=== PATIENT | female | born 1955 | race Caucasian/White ===

== ENCOUNTER 2016-05-03 13:17 | Inpatient (IN) | payer BC, OTHER ==
[~2016-05-03] VITALS: Ht 162.6 cm; Wt 72.0 kg
[2016-05-03 13:18] VITALS: BP 141/91; PULSE 94; RESP 17; TEMP 98.1; O2SAT 98
--- NOTE | 2016-05-03 15:13 | PD ---
HPI Chief Complaint: Abdominal Pain Time Seen by Provider: 15:05 Travel History International Travel<30 days: No Contact w/Intl Traveler<30days: No Traveled to known affect area: No History of Present Illness HPI Patient is a 60-year-old female presenting to emergency department for acute liver rejection. Patient had a liver transplant in 1993, she has been out of her antirejection medications for approximately 6 weeks due to insurance issues. She was seen at the emergency room at [facility] on April 01 and was given a three-day course of oral steroids. Patient started becoming jaundiced shortly after she ran out of her rejection medications. She was on Prograf. She was sent to the emergency room on the advice of her primary care provider Dr. Ramana Ovalles. Her last Bilirubin level was 17.7. Patient reports itching, jaundice, anxiety, abdominal bloating, right upper quadrant abdominal pain that is tender. PFSH Past Medical History Cirrhosis: Yes ?: Not Past Surgical History Other Surgery: Yes (LIVER REPLACEMENT 17 YEARS AGO) Social History Alcohol Use: No Tobacco Use: No Substance Use: No Allergies-Medications (Allergen,Severity, Reaction): Coded Allergies: No Known Allergies (Verified , 05/03/16) Reported Meds & Prescriptions Reported Meds & Active Scripts Active Reported Hydroxyzine HCl 25 Mg Tab 25 Mg PO TID PRN Prograf (Tacrolimus) 1 Mg Cap 1 Mg PO TID Review of Systems Except as stated in HPI: all other systems reviewed are Neg General / Constitutional: No: Fever, Chills Eyes: Positive: Other (scleral icterus) HENT: No: Headaches Cardiovascular: No: Chest Pain or Discomfort Respiratory: No: Shortness of Breath Gastrointestinal: Positive: Abdominal Pain (right upper quadrant and bloating) , No: Nausea Genitourinary: No: Dysuria Skin: Positive Itching, Positive Change in Pigmentation Neurologic: No: Dizziness, Focal Abnormalities Physical Exam Narrative GENERAL: Developed, well-nourished, alert female. Resting comfortably in no acute distress. SKIN: Warm and dry. Jaundiced HEAD: Atraumatic. Normocephalic. EYES: Pupils equal and round. Positive scleral icterus. No injection or drainage. ENT: No nasal bleeding or discharge. Mucous membranes pink and moist. NECK: Trachea midline. No JVD. CARDIOVASCULAR: Regular rate and rhythm. No murmur appreciated. RESPIRATORY: No accessory muscle use. Clear to auscultation. Breath sounds equal bilaterally. GASTROINTESTINAL: Abdomen soft, moderately tender to palpation right upper quadrant, nondistended. Hepatic and splenic margins not palpable. Positive bowel sounds. Positive guarding MUSCULOSKELETAL: No obvious deformities. No clubbing. No cyanosis. No edema. NEUROLOGICAL: Awake and alert. No obvious cranial nerve deficits. Motor grossly within normal limits. Normal speech. PSYCHIATRIC: Appropriate mood and affect; insight and judgment normal. Data Data Last Documented VS Vital Signs Date Time Temp Pulse Resp B/P Pulse Ox O2 Delivery O2 Flow Rate FiO2 05/03/16 16:53 20 05/03/16 15:30 89 148/86 98 Room Air 05/03/16 13:18 98.1 Orders Complete Blood Count With Diff (05/03/16 14:53) Comprehensive Metabolic Panel (05/03/16 14:53) Lipase (05/03/16 14:53) Lactic Acid (05/03/16 14:53) Prothrombin Time / Inr (Pt) (05/03/16 14:53) Act Partial Throm Time (Ptt) (05/03/16 14:53) Urinalysis - C+S If Indicated (05/03/16 14:53) Us Abdomen Gallbladder (05/03/16 ) Ammonia (05/03/16 14:53) Electrocardiogram (05/03/16 ) Chest, Single Ap (05/03/16 ) Admit Order (Ed Use Only) (05/03/16 17:38) Labs Laboratory Tests Test 05/03/16 15:15 White Blood Count 6.6 TH/MM3 Red Blood Count 4.36 MIL/MM3 Hemoglobin 13.2 GM/DL Hematocrit 38.6 % Mean Corpuscular Volume 88.5 FL Mean Corpuscular Hemoglobin 30.2 PG Mean Corpuscular Hemoglobin 34.1 % Concent Red Cell Distribution Width 24.2 % Platelet Count 132 TH/MM3 Mean Platelet Volume 9.2 FL Neutrophils (%) (Auto) % Lymphocytes (%) (Auto) % Monocytes (%) (Auto) % Eosinophils (%) (Auto) % Basophils (%) (Auto) % Neutrophils # (Auto) TH/MM3 Lymphocytes # (Auto) TH/MM3 Monocytes # (Auto) TH/MM3 Eosinophils # (Auto) TH/MM3 Basophils # (Auto) TH/MM3 CBC Comment AUTO DIFF Differential Total Cells 100 Counted Neutrophils % (Manual) 62 % Band Neutrophils % 1 % Lymphocytes % 27 % Monocytes % 7 % Eosinophils % 2 % Basophils % 1 % Neutrophils # (Manual) 4.2 TH/MM3 Differential Comment FINAL DIFF MANUAL Platelet Estimate LOW Platelet Morphology Comment NORMAL Target Cells 1+ Prothrombin Time 10.7 SEC Prothromb Time International 1.0 RATIO Ratio Activated Partial 26.8 SEC Thromboplast Time Sodium Level 141 MEQ/L Potassium Level 4.3 MEQ/L Chloride Level 109 MEQ/L Carbon Dioxide Level 23.5 MEQ/L Anion Gap 9 MEQ/L Blood Urea Nitrogen 27 MG/DL Creatinine 1.62 MG/DL Estimat Glomerular Filtration 32 ML/MIN Rate Random Glucose 146 MG/DL Lactic Acid Level 0.8 mmol/L Calcium Level 9.4 MG/DL Total Bilirubin 15.7 MG/DL Aspartate Amino Transf 102 U/L (AST/SGOT) Alanine Aminotransferase 90 U/L (ALT/SGPT) Alkaline Phosphatase 456 U/L Ammonia LESS THAN 10 MCMOL/L Total Protein 6.9 GM/DL Albumin 2.8 GM/DL Lipase 88 U/L MDM Medical Decision Making Medical Screen Exam Complete: Yes Emergency Medical Condition: Yes Interpretation(s) Vital Signs Date Time Temp Pulse Resp B/P Pulse Ox O2 Delivery O2 Flow Rate FiO2 05/03/16 13:18 98.1 94 17 141/91 98 Differential Diagnosis Acute rejection versus electrolyte abnormality versus liver failure versus coagulopathy versus other Narrative Course Patient is a 60-year-old female presenting to emergency room for evaluation of jaundice and acute rejection of transplanted. Patient was sent by her primary doctor due to elevated bilirubin levels. Labs and imaging ordered and pending. Workup initiated triage, care of patient will be transferred to provider when a medical bed is available. Eryn Bean May 03, 2016 15:13
[2016-05-03 15:30] VITALS: BP 148/86; PULSE 89; RESP 17; O2SAT 98
[2016-05-03 15:35] LABS: HEMATOCRIT 38.6 % (35.0-46.0); MEAN CELL VOLUME 88.5 FL (80.0-100.0); MEAN CORPUSCULAR HEMOGLOBIN 30.2 PG (27.0-34.0); MEAN CORPUSCULAR HGB CONC 34.1 % (32.0-36.0); PLATELET COUNT 132 TH/MM3 (150-450); RED BLOOD COUNT 4.36 MIL/MM3 (4.00-5.30); RED CELL DISTRIBUTION WIDTH 24.2 % (11.6-17.2); WHITE BLOOD COUNT 6.6 TH/MM3 (4.0-11.0)
[2016-05-03 15:48] LABS: HEMO FLAGS AUTO DIFF
[2016-05-03 15:58] LABS: ANION GAP 9 MEQ/L (5-15); AST (GOT) 102 U/L (15-37); BICARBONATE 23.5 MEQ/L (21.0-32.0); BLOOD UREA NITROGEN 27 MG/DL (7-18); CHLORIDE 109 MEQ/L (98-107); GLOMERULAR FILTRATION RATE 32 ML/MIN (>89); POTASSIUM 4.3 MEQ/L (3.5-5.1); SODIUM (NA) 141 MEQ/L (136-145)
[2016-05-03 16:03] LABS: ALKALINE PHOSPHATASE 456 U/L (45-117); ALT (GPT) 90 U/L (10-53); TOTAL BILIRUBIN ADULT 15.7 MG/DL (0.2-1.0)
[2016-05-03 16:06] LABS: APTT (PATIENT) 26.8 SEC (24.3-30.1); PROTHROMBIN TIME - PATIENT 10.7 SEC (9.8-11.6)
--- NOTE | 2016-05-03 16:41 | RADRPT ---
EXAM DATE/TIME: 05/03/2016 15:54 This report includes an Addendum and supersedes previous reports for this exam. [facility] COMPARISON: No previous studies available for comparison. INDICATIONS : Right upper quadrant pain. MEDICAL HISTORY : Cirrhosis. SURGICAL HISTORY : Liver replacement 17yrs ago. ENCOUNTER: Initial ACUITY: 1 month PAIN SCORE: 2/10 LOCATION: Right upper quadrant MEASUREMENTS: LIVER: 12.5 cm length COMMON DUCT: 4 mm RIGHT KIDNEY: 9.6 x 5.3 x 4.5 cm FINDINGS: LIVER: Liver is small. The liver surface does appear nodular. No focal hepatic masses seen. COMMON DUCT: No intraluminal mass or stone visualized. GALLBLADDER: The gallbladder is absent. PANCREAS: The visualized portions are within normal limits. RIGHT KIDNEY: No evidence of hydronephrosis, stone, or mass. CONCLUSION: Nodular liver which could suggest some degree of cirrhosis in the correct clinical situation. Joe Guerrier MD on May 03, 2016 at 16:38 Board Certified Radiologist. This report was verified electronically. ADDENDUM: I been asked to review the study. There is normal flow in the portal vein and hepatic veins . The hepatic artery was not examined. Joe Guerrier MD on May 04, 2016 at 9:28 Board Certified Radiologist. This report was verified electronically.
[2016-05-03 16:43] LABS: BANDS 1 % (0-6); BASOPHILS 1 % (0-2); EOSINOPHILS 2 % (0-4); NEUTROPHIL # MANUAL DIFF 4.2 TH/MM3 (1.8-7.7); POLYS (SEG NEUTROPHILS) 62 % (16-70); WBC DIFF SAMPLE 100
[2016-05-03 16:45] LABS: PLATELET ESTIMATE SMEAR LOW (NORMAL); PLATELET MORPHOLOGY NORMAL (NORMAL); SCAN/DIFF FINAL DIFF MANUAL; TARGET CELLS 1+ (NORMAL)
--- NOTE | 2016-05-03 17:28 | RADRPT ---
EXAM DATE/TIME: 05/03/2016 16:50 [facility] COMPARISON: No previous studies available for comparison. INDICATIONS : Cough. Short of breath. Jaundice due to liver rejection. MEDICAL HISTORY : Cirrhosis. SURGICAL HISTORY : Liver transplant 17 years ago. ENCOUNTER: Initial ACUITY: 4 - 6 days PAIN SCORE: 0/10 LOCATION: Bilateral chest FINDINGS: A single view of the chest demonstrates the lungs to be symmetrically aerated without evidence of mas s, infiltrate or effusion. The cardiomediastinal contours are unremarkable. Osseous structures are intact. CONCLUSION: No acute disease. John Drew MD on May 03, 2016 at 17:25 Board Certified Radiologist. This report was verified electronically.
[2016-05-03] MEDS ORDERED: HYDR-3133 PO (17:38)
[2016-05-03] MEDS ORDERED: TACR1 PO (17:38)
--- NOTE | 2016-05-03 17:38 | PD ---
Physical Exam Time Seen by Provider: 17:37 Narrative Please refer to produce provider's documentation for details surrounding the patient's current visit. Data Data Last Documented VS Vital Signs Date Time Temp Pulse Resp B/P Pulse Ox O2 Delivery O2 Flow Rate FiO2 05/03/16 16:53 20 05/03/16 13:18 98.1 94 141/91 98 Orders Complete Blood Count With Diff (05/03/16 14:53) Comprehensive Metabolic Panel (05/03/16 14:53) Lipase (05/03/16 14:53) Lactic Acid (05/03/16 14:53) Prothrombin Time / Inr (Pt) (05/03/16 14:53) Act Partial Throm Time (Ptt) (05/03/16 14:53) Urinalysis - C+S If Indicated (05/03/16 14:53) Us Abdomen Gallbladder (05/03/16 ) Ammonia (05/03/16 14:53) Electrocardiogram (05/03/16 ) Chest, Single Ap (05/03/16 ) Admit Order (Ed Use Only) (05/03/16 17:38) Labs Laboratory Tests Test 05/03/16 15:15 White Blood Count 6.6 TH/MM3 Red Blood Count 4.36 MIL/MM3 Hemoglobin 13.2 GM/DL Hematocrit 38.6 % Mean Corpuscular Volume 88.5 FL Mean Corpuscular Hemoglobin 30.2 PG Mean Corpuscular Hemoglobin 34.1 % Concent Red Cell Distribution Width 24.2 % Platelet Count 132 TH/MM3 Mean Platelet Volume 9.2 FL Neutrophils (%) (Auto) % Lymphocytes (%) (Auto) % Monocytes (%) (Auto) % Eosinophils (%) (Auto) % Basophils (%) (Auto) % Neutrophils # (Auto) TH/MM3 Lymphocytes # (Auto) TH/MM3 Monocytes # (Auto) TH/MM3 Eosinophils # (Auto) TH/MM3 Basophils # (Auto) TH/MM3 CBC Comment AUTO DIFF Differential Total Cells 100 Counted Neutrophils % (Manual) 62 % Band Neutrophils % 1 % Lymphocytes % 27 % Monocytes % 7 % Eosinophils % 2 % Basophils % 1 % Neutrophils # (Manual) 4.2 TH/MM3 Differential Comment FINAL DIFF MANUAL Platelet Estimate LOW Platelet Morphology Comment NORMAL Target Cells 1+ Prothrombin Time 10.7 SEC Prothromb Time International 1.0 RATIO Ratio Activated Partial 26.8 SEC Thromboplast Time Sodium Level 141 MEQ/L Potassium Level 4.3 MEQ/L Chloride Level 109 MEQ/L Carbon Dioxide Level 23.5 MEQ/L Anion Gap 9 MEQ/L Blood Urea Nitrogen 27 MG/DL Creatinine 1.62 MG/DL Estimat Glomerular Filtration 32 ML/MIN Rate Random Glucose 146 MG/DL Lactic Acid Level 0.8 mmol/L Calcium Level 9.4 MG/DL Total Bilirubin 15.7 MG/DL Aspartate Amino Transf 102 U/L (AST/SGOT) Alanine Aminotransferase 90 U/L (ALT/SGPT) Alkaline Phosphatase 456 U/L Ammonia LESS THAN 10 MCMOL/L Total Protein 6.9 GM/DL Albumin 2.8 GM/DL Lipase 88 U/L [facility] Medical Record Reviewed: Yes Supervised Visit with CARLOS MANUEL: No Differential Diagnosis Liver failure versus liver transplant rejection versus hepatitis versus viral syndrome Narrative Course 60-year-old female presents to emergency department for evaluation of possible liver transplant rejection. Patient is icteric with right upper quadrant abdominal pain. Laboratory Tests Test 05/03/16 15:15 White Blood Count 6.6 TH/MM3 Red Blood Count 4.36 MIL/MM3 Hemoglobin 13.2 GM/DL Hematocrit 38.6 % Mean Corpuscular Volume 88.5 FL Mean Corpuscular Hemoglobin 30.2 PG Mean Corpuscular Hemoglobin 34.1 % Concent Red Cell Distribution Width 24.2 % Platelet Count 132 TH/MM3 Mean Platelet Volume 9.2 FL Neutrophils (%) (Auto) % Lymphocytes (%) (Auto) % Monocytes (%) (Auto) % Eosinophils (%) (Auto) % Basophils (%) (Auto) % Neutrophils # (Auto) TH/MM3 Lymphocytes # (Auto) TH/MM3 Monocytes # (Auto) TH/MM3 Eosinophils # (Auto) TH/MM3 Basophils # (Auto) TH/MM3 CBC Comment AUTO DIFF Differential Total Cells 100 Counted Neutrophils % (Manual) 62 % Band Neutrophils % 1 % Lymphocytes % 27 % Monocytes % 7 % Eosinophils % 2 % Basophils % 1 % Neutrophils # (Manual) 4.2 TH/MM3 Differential Comment FINAL DIFF MANUAL Platelet Estimate LOW Platelet Morphology Comment NORMAL Target Cells 1+ Prothrombin Time 10.7 SEC Prothromb Time International 1.0 RATIO Ratio Activated Partial 26.8 SEC Thromboplast Time Sodium Level 141 MEQ/L Potassium Level 4.3 MEQ/L Chloride Level 109 MEQ/L Carbon Dioxide Level 23.5 MEQ/L Anion Gap 9 MEQ/L Blood Urea Nitrogen 27 MG/DL Creatinine 1.62 MG/DL Estimat Glomerular Filtration 32 ML/MIN Rate Random Glucose 146 MG/DL Lactic Acid Level 0.8 mmol/L Calcium Level 9.4 MG/DL Total Bilirubin 15.7 MG/DL Aspartate Amino Transf 102 U/L (AST/SGOT) Alanine Aminotransferase 90 U/L (ALT/SGPT) Alkaline Phosphatase 456 U/L Ammonia LESS THAN 10 MCMOL/L Total Protein 6.9 GM/DL Albumin 2.8 GM/DL Lipase 88 U/L CBC is without acute concern. Liver enzymes are elevated. Bilirubin is 15.7. Ultrasound of the right upper quadrant shows nodular liver which could be indicative of cirrhosis in the right clinical setting. I discussed the patient my attending physician Dr. Blackwell who agrees with contacting hospitalist for admission for further evaluations. I spoke with Dr. Garcia. Patient will be admitted observation to the [facility] hospitalist service. Diagnosis Primary Impression: Liver transplant rejection Admitting Information Admitting Physician Requests: Observation Condition: Stable Viv Simons May 03, 2016 17:38
[2016-05-03] MEDS ORDERED: hydrOXYzine HCL 50 MG TAB PO ONE (17:45)
[2016-05-03 18:00] VITALS: BP 146/76; PULSE 78; RESP 17; O2SAT 99
[2016-05-03 18:27] LABS: BACTERIA, URINE OCC /hpf; BLOOD, URINE NEG (NEG); COMMENT (UR) CULT NOT INDICATED; CULTURE IF INDICATED CULT NOT INDICATED; GLUCOSE,URINE NEG (NEG); HYALINE CAST, URINE 1 /lpf (RARE); KETONE, URINE NEG (NEG); MUCUS URINE FEW /lpf (OCC); NITRITE,URINE NEG (NEG); SQUAMOUS EPITHELIAL CELL URINE 1 /hpf (0-5)
[2016-05-03 18:28] LABS: URINE COLOR AMBER (YELLW/STRAW)
[2016-05-03] MEDS ORDERED: SODIUM CHLOR 0.9% 1000 ML INJ 1,000 ML IV SCH (19:02)
[2016-05-03 19:11] VITALS: BP 172/95; PULSE 83; RESP 16; O2SAT 100
[2016-05-03] MEDS ORDERED: hydrOXYzine HCL 25 MG TAB PO PRN (19:15)
[2016-05-03] MEDS ORDERED: SODIUM CHLORIDE 0.9% FLUSH 5 ML FLUSH FLUSH PRN ×2 (19:15→20:30)
[2016-05-03] MEDS ORDERED: ACETAMINOPHEN 325 MG TAB PO PRN (19:15)
[2016-05-03] MEDS ORDERED: SENNOSIDES 8.6 MG TAB PO PRN (19:15)
[2016-05-03] MEDS ORDERED: PROCHLORPERAZINE 25 MG SUPP PR PRN (19:15)
[2016-05-03] MEDS ORDERED: BISACODYL 10 MG SUPP PR PRN ×2 (19:15→20:30)
[2016-05-03] MEDS ORDERED: ONDANSETRON HCL 4 MG/2 ML VIAL IVP PRN (19:15)
[2016-05-03] MEDS ORDERED: NALOXONE HCL 0.4 MG/ML AMP IV PRN (20:30)
[2016-05-03] MEDS ORDERED: MAGNESIUM HYDROXIDE SUSP 30 ML CUP PO PRN (20:30)
[2016-05-03] MEDS ORDERED: SODIUM CHLORIDE 0.9% FLUSH 5 ML FLUSH FLUSH SCH (21:00)
[2016-05-03] MEDS: methylPREDNISolone SOD SUCC 40 MG/1 ML VIAL IV PUSH SCH (22:12)
[2016-05-03] MEDS: SODIUM CHLORIDE 0.9% FLUSH 5 ML FLUSH FLUSH SCH (22:13)
[2016-05-03] MEDS: 1/2 NS + KCL 20 MEQ INJ 1,000 ML IV SCH (23:20)
[2016-05-04] VITALS (7 sets, daily range): BP systolic 133–160; BP diastolic 64–85; PULSE 81–102; RESP 17–20; TEMP 96.7–98.7; O2SAT 93–99
[2016-05-04] MEDS: hydrOXYzine HCL 25 MG TAB PO PRN ×2 (00:07→18:42)
[2016-05-04] MEDS: methylPREDNISolone SOD SUCC 40 MG/1 ML VIAL IV PUSH SCH (06:36)
--- NOTE | 2016-05-04 08:34 | HHI.HP ---
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 She received a full-sized graft with a [id number] biliary anastomosis. CMV status is unknown. Patient presented to [place] ER with complaint of diarrhea, jaundice, dark urine , pruritus, weakness, but no abdominal pain except with cough. No edema. No fever. Patient denies any weight gain or personality changes. Patient was sent to the ER by her primary care physician due to abnormal labs. Patient has previously followed at the Liver Clinic at the [facility]. Per review of records from [place] patient has previously had issues with compliance including labs, medications, and financial constraints. Patient was admitted to inpatient status at the [facility] on April 01, 2016. At that time patient had been off of her anti-rejection medication for 6 weeks, prograf. Patient resumed Prograf 1 week prior to above March hospitalization. Upon presentation to the [facility], patient complained of a 3 week history of fatigue, nausea, vomiting, abdominal distention, pruritus, dark urine. At that time admission labs showed elevated LFTs and hyperbilirubinemia with a total bilirubin of 9.2 (04/01/16), bili direct 7.2 (04/01/16), alk phos 537 (04/01/16), ALT 227 (04/01/16), AST 184 (04/01/16), Creatinine 1.5 (04/01/16). During hospitalization at [facility] pt was attended by Dr. Ford Torres. Pt underwent liver biopsy during above hospitalization which per records showed mild acute cellular rejection. Pt received atarax, IV Solu-Medrol 1 g x 3 doses, and was discharge on prograft. Pt seen in [place] ER 04/09/16 with c/o N/V and pruritus. Bilirubin total 13.2, bilirubin direct 9.8, alkaline phosphatase 512, ALT 259, AST 134, creatinine 1.0. ER records indicate that patient was NOT admitted. There was communication between the ER physician and the liver transplant team. Patient was continued on Atarax. Patient was instructed to follow-up with the [facility] liver transplantation team. Outpatient Labs obtained 04/28/16 Bilirubin total 17.7, alkaline phosphatase 439, AST 102, ALT 95, creatinine 1.47 Item Value Date Time Total Bilirubin 15.7 MG/DL H 05/03/16 1515 Aspartate Amino Transf (AST/SGOT) 102 U/L H 05/03/16 1515 Alanine Aminotransferase (ALT/SGPT) 90 U/L H 05/03/16 1515 Alkaline Phosphatase 456 U/L H 05/03/16 1515 Ammonia LESS THAN 10 MCMOL/L L 05/03/16 1515 Creatinine 1.62 MG/DL H 05/03/16 151 Patient denies use supplements or recent use of Tylenol. Pt denies starting any new medications. Review of Systems Constitutional: COMPLAINS OF: Fatigue, DENIES: Diaphoretic episodes, Fever, Weight gain, Weight loss, Chills, Dizziness, Change in appetite, Night Sweats Endocrine: DENIES: Heat/cold intolerance, Polydipsia, Polyuria, Polyphagia Eyes: DENIES: Blurred vision, Diplopia, Eye inflammation, Eye pain, Vision loss , Photosensitivity, Double Vision Ears, nose, mouth, throat: DENIES: Tinnitus, Hearing loss, Vertigo, Nasal discharge, Oral lesions, Throat pain, Hoarseness, Ear Pain, Running Nose, Epistaxis, Sinus Pain, Toothache, Odynophagia Respiratory: DENIES: Apneas, Cough, Snoring, Wheezing, Hemoptysis, Sputum production, Shortness of breath Cardiovascular: DENIES: Chest pain, Palpitations, Syncope, Dyspnea on Exertion , PND, Lower Extremity Edema, Orthopnea, Claudication Gastrointestinal: COMPLAINS OF: Abdominal pain, Nausea, Anorexia, See HPI, DENIES: Black stools, Bloody stools, BRB per rectum, Constipation, Diarrhea, GERD, Reflux, Vomiting, Difficulty Swallowing Genitourinary: DENIES: Urinary frequency, Urinary incontinence, Urgency, Hematuria, Dysuria, Nocturia Musculoskeletal: DENIES: Joint pain, Muscle aches, Stiffness, Joint Swelling, Back pain, Neck pain Integumentary: COMPLAINS OF: Pruritus, DENIES: Abnormal pigmentation, Rash, Nail changes Hematologic/lymphatic: DENIES: Bruising, Lymphadenopathy Immunologic/allergic: DENIES: Eczema, Urticaria Neurologic: DENIES: Abnormal gait, Headache, Localized weakness, Paresthesias, Seizures, Speech Problems, Tremor, Poor Balance Psychiatric: DENIES: Anxiety, Confusion, Mood changes, Depression, Hallucinations, Agitation, Suicidal Ideation, Homicidal Ideation, Delusions, History of Bipolar, History of Schizophrenia Past Family Social History Past Medical History 1) cryptogenic cirrhosis s/p OLT 2) HTN 3) migraine headaches 4) LBP 5) prior h/o rejection x 4 (per records) Past Surgical History Orthotopic liver transplant 06/07/1993 at [facility] in [facility] Reported Medications Reported Meds & Active Scripts Active Reported Prograf (Tacrolimus) 1 Mg Cap 1 Mg PO TID Allergies: Coded Allergies: No Known Allergies (Verified , 05/03/16) Family History Mother: secondary to stomach cancer Father: DC secondary to stroke Sister: Cryptogenic liver disease, hyperlipidemia Social History - Lives with 2 daughters - No tobacco use - No alcohol use, but it is documented that patient drank socially following transplant - (Per records) history of noncompliance with labs and medications Physical Exam Vital Signs Vital Signs Date Time Temp Pulse Resp B/P Pulse Ox O2 Delivery O2 Flow Rate FiO2 05/04/16 04:00 96.7 83 18 133/77 95 05/04/16 00:00 98.7 92 18 140/64 93 05/03/16 19:53 21 05/03/16 19:11 83 16 172/95 100 Room Air 05/03/16 18:00 78 17 146/76 99 Room Air 05/03/16 16:53 20 05/03/16 15:30 89 17 148/86 98 Room Air 05/03/16 13:18 98.1 94 17 141/91 98 Physical Exam GENERAL: This is a well-nourished, well-developed patient, in no apparent distress. SKIN: No rashes, ecchymoses or lesions. Cool and dry. HEAD: Atraumatic. Normocephalic. No temporal or scalp tenderness. EYES: icteric sclera Pupils equal round and reactive. Extraocular motions intact. No injection or drainage. ENT: Nose without bleeding, purulent drainage or septal hematoma. Throat without erythema, tonsillar hypertrophy or exudate. Uvula midline. Airway patent. NECK: Trachea midline. No JVD or lymphadenopathy. Supple, nontender, no meningeal signs. CARDIOVASCULAR: Regular rate and rhythm without murmurs, gallops, or rubs. RESPIRATORY: Clear to auscultation. Breath sounds equal bilaterally. No wheezes , rales, or rhonchi. GASTROINTESTINAL: Abdomen soft, non-tender, nondistended. No hepato-splenomegaly , or palpable masses. No guarding. MUSCULOSKELETAL: Extremities without clubbing, cyanosis, or edema. No joint tenderness, effusion, or edema noted. No calf tenderness. Negative Homans sign bilaterally. NEUROLOGICAL: Awake and alert. Cranial nerves II through XII intact. Motor and sensory grossly within normal limits. Five out of 5 muscle strength in all muscle groups. Normal speech. Skin: jaundiced Laboratory Laboratory Tests Test 05/03/16 05/03/16 05/03/16 15:15 18:00 21:40 White Blood Count 6.6 Red Blood Count 4.36 Hemoglobin 13.2 Hematocrit 38.6 Mean Corpuscular Volume 88.5 Mean Corpuscular Hemoglobin 30.2 Mean Corpuscular Hemoglobin 34.1 Concent Red Cell Distribution Width 24.2 Platelet Count 132 Mean Platelet Volume 9.2 Neutrophils (%) (Auto) Lymphocytes (%) (Auto) Monocytes (%) (Auto) Eosinophils (%) (Auto) Basophils (%) (Auto) Neutrophils # (Auto) Lymphocytes # (Auto) Monocytes # (Auto) Eosinophils # (Auto) Basophils # (Auto) CBC Comment AUTO DIFF Differential Total Cells 100 Counted Neutrophils % (Manual) 62 Band Neutrophils % 1 Lymphocytes % 27 Monocytes % 7 Eosinophils % 2 Basophils % 1 Neutrophils # (Manual) 4.2 Differential Comment FINAL DIFF MANUAL Platelet Estimate LOW Platelet Morphology Comment NORMAL Target Cells 1+ Prothrombin Time 10.7 Prothromb Time International 1.0 Ratio Activated Partial 26.8 Thromboplast Time Sodium Level 141 Potassium Level 4.3 Chloride Level 109 Carbon Dioxide Level 23.5 Anion Gap 9 Blood Urea Nitrogen 27 Creatinine 1.62 Estimat Glomerular Filtration 32 Rate Random Glucose 146 Lactic Acid Level 0.8 Calcium Level 9.4 Total Bilirubin 15.7 Aspartate Amino Transf 102 (AST/SGOT) Alanine Aminotransferase 90 (ALT/SGPT) Alkaline Phosphatase 456 Ammonia LESS THAN 10 LESS THAN 10 Total Protein 6.9 Albumin 2.8 Lipase 88 Urine Color LENORE Urine Turbidity HAZY Urine pH 5.0 Urine Specific [place] 1.015 Urine Protein TRACE Urine Glucose (UA) NEG Urine Ketones NEG Urine Occult Blood NEG Urine Nitrite NEG Urine Bilirubin LARGE Urine Urobilinogen LESS THAN 2.0 Urine Leukocyte Esterase MOD Urine RBC LESS THAN 1 Urine WBC 4 Urine Squamous Epithelial 1 Cells Urine Bacteria OCC Urine Hyaline Casts 1 Urine Mucus FEW Microscopic Urinalysis Comment CULT NOT INDICATED Item Value Date Time Total Bilirubin 15.7 MG/DL H 05/03/16 1515 Aspartate Amino Transf (AST/SGOT) 102 U/L H 05/03/16 1515 Alanine Aminotransferase (ALT/SGPT) 90 U/L H 05/03/16 1515 Alkaline Phosphatase 456 U/L H 05/03/16 1515 Ammonia LESS THAN 10 MCMOL/L L 05/03/16 151 Creatinine 1.62 MG/DL H 05/03/16 151 Result Diagram: 05/03/16 15105/03/161514 Imaging Gallbladder ultrasound (91763) - Nodular liver consistent with cirrhosis - No evidence of portal vein thrombosis Septic Shock Reassessment Heart: Regular rate and rhythm Lungs: Clear Skin: Warm Peripheral Pulses: Bounding Right Radial Bounding Left Radial Bounding Right Popliteal Bounding Left Popliteal Bounding Right Dorsalis Pedis Bounding Left Dorsalis Pedis Bounding Right Posterior Tibial Bounding Left Posterior Tibial Capillary Refill: Brisk Assessment and Plan Problem List: (1) Liver transplant rejection Status: Acute Plan: - Comgmt with GI, Dr. Byrne - Patient was off Prograf for 6 weeks, due to financial constraints - Patient recently hospitalized at [facility] in March 2016 - liver US (05/04/16) - NO evidence of portal vein thrombosis - On 3817: Total bilirubin 17.7, alkaline phosphatase 439, AST 102, ALT 95 - Patient started on IV Solu-Medrol at 40mg TID, and dose increased to 600mg IV TID - Prograf continued - Atarax prn - Prograf level 11.7 (05/03/16) - No coagulopathy - ammonia level is NOT elevated - Tylenol level less than 2 - Case d/w Dr. Byrne (05/04/16) - Dr. Byrne will discuss case with Liver specialist at [facility] for further recommendations - for now continue IVFs, high dose IV steroids, and repeat BMP, LFTs in AM. Atrax prn. (2) Elevated blood pressure reading Status: Acute Plan: - Patient was discharged in [facility] on Norvasc and atenolol - Not clear if patient was taking this in the outpatient setting - Observe blood pressure readings - Catapres prn, vasotec prn (3) Hemorrhoids, external Status: Acute Plan: [facility] Phys[facility] Certification 2 Midnight Certification Type: Admission for Inpatient Services Order for Inpatient Services The services are ordered in accordance with Medicare regulations or non- Medicare payer requirements, as applicable. In the case of services not specified as inpatient-only, they are appropriately provided as inpatient services in accordance with the 2-midnight benchmark. Estimated LOS (days): 3 3 days is the estimated time the patient will need to remain in the hospital, assuming treatment plan goals are met and no additional complications. Post-Hospital Plan: Not yet determined Ky Johns DO May 04, 2016 08:34
[2016-05-04] MEDS: 1/2 NS + KCL 20 MEQ INJ 1,000 ML IV SCH ×2 (08:40→13:18)
[2016-05-04] MEDS ORDERED: TACROLIMUS 1 MG CAP PO SCH ×2 (09:00)
[2016-05-04 09:22] LABS: HEMATOCRIT 35.6 % (35.0-46.0); MEAN CELL VOLUME 88.3 FL (80.0-100.0); MEAN CORPUSCULAR HEMOGLOBIN 30.3 PG (27.0-34.0); MEAN CORPUSCULAR HGB CONC 34.3 % (32.0-36.0); PLATELET COUNT 114 TH/MM3 (150-450); RED BLOOD COUNT 4.04 MIL/MM3 (4.00-5.30); RED CELL DISTRIBUTION WIDTH 22.9 % (11.6-17.2); WHITE BLOOD COUNT 4.7 TH/MM3 (4.0-11.0)
[2016-05-04 09:27] LABS: HEMO FLAGS AUTO DIFF
[2016-05-04] MEDS: TACROLIMUS 1 MG CAP PO SCH ×3 (09:42→18:42)
[2016-05-04] MEDS: SODIUM CHLORIDE 0.9% FLUSH 5 ML FLUSH FLUSH SCH ×2 (09:42→21:00)
[2016-05-04] MEDS ORDERED: ENALAPRILAT 1.25 MG/ML VIAL IV PRN (09:45)
[2016-05-04] MEDS ORDERED: cloNIDine HCL 0.2 MG TAB PO PRN (09:45)
[2016-05-04 09:55] LABS: ALKALINE PHOSPHATASE 441 U/L (45-117); ALT (GPT) 74 U/L (10-53); ANION GAP 11 MEQ/L (5-15); AST (GOT) 77 U/L (15-37); BICARBONATE 18.5 MEQ/L (21.0-32.0); CHLORIDE 111 MEQ/L (98-107); GLOMERULAR FILTRATION RATE 35 ML/MIN (>89); INDIRECT BILIRUBIN 2.7 MG/DL (0.0-0.8); MAGNESIUM 1.6 MG/DL (1.5-2.5); POTASSIUM 4.4 MEQ/L (3.5-5.1); SODIUM (NA) 140 MEQ/L (136-145); TOTAL BILIRUBIN ADULT 14.2 MG/DL (0.2-1.0)
[2016-05-04 09:56] LABS: ACETAMINOPHEN LESS THAN 2.0 MCG/ML (10.0-30.0); BLOOD UREA NITROGEN 30 MG/DL (7-18)
[2016-05-04 10:17] LABS: BANDS 3 % (0-6); NEUTROPHIL # MANUAL DIFF 4.6 TH/MM3 (1.8-7.7); POLYS (SEG NEUTROPHILS) 94 % (16-70); WBC DIFF SAMPLE 100
[2016-05-04 10:19] LABS: PLATELET ESTIMATE SMEAR LOW (NORMAL); PLATELET MORPHOLOGY NORMAL (NORMAL); SCAN/DIFF FINAL DIFF MANUAL; TARGET CELLS 1+ (NORMAL)
--- NOTE | 2016-05-04 13:23 | PD.CONS ---
HPI History of Present Illness This is a 60 year old female with a history of a orthotopic liver transplant at [facility] in [facility] in 1993 for end -stage liver disease due to cryptogenic cirrhosis. 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 She presented to the emergency department with complaints of diarrhea, jaundice, dark urine, pruritus, weakness. Denies abdominal pain. She previously followed at [facility] was hospitalized there in March. Prior to March hospitalization, patient was last seen at the [facility] in 2007. Per review of records from [facility] patient has previously had issues with compliance including labs, medications, and financial constraints. Patient was admitted to inpatient status at the [facility] on April 01, 2016. At that time patient had been off of her anti-rejection medication for 6 weeks, prograf. Patient resumed Prograf 1 week prior to above March hospitalization. Upon presentation to the [facility], patient complained of a 3 week history of fatigue, nausea, vomiting, abdominal distention, pruritus, dark urine. At that time admission labs showed elevated LFTs and hyperbilirubinemia with a total bilirubin of 9.2 (04/01/16), bili direct 7.2 (), alk phos 537 (04/01/16), ALT 227 (04/01/16), AST 184 (04/01/16), Creatinine 1.5 ( 04/01/16). During hospitalization at [facility] pt was attended by Dr. Ford Torres. Pt underwent liver biopsy during above hospitalization which per records showed mild acute cellular rejection. Pt received atarax, IV Solu-Medrol 1 g x 3 doses, and was discharge on prograft. Pt seen in [facility] ER 04/09/16 with c/o N/V and pruritus. Bilirubin total 13.2, bilirubin direct 9.8, alkaline phosphatase 512, ALT 259, AST 134, creatinine 1.0. ER records indicate that patient was not admitted. There was communication between the ER physician and the liver transplant team. Patient was continued on Atarax. Patient was instructed to follow-up with the [facility] liver transplantation team. Outpatient Labs obtained 04/28/16 Bilirubin total 17.7, alkaline phosphatase 439, AST 102, ALT 95, creatinine 1.47 (Dai Noonan) PFSH Past Medical History Cryptogenic cirrhosis S/P OLT HTN Migraine headaches Liver Bx Prior Hx of rejections Past Surgical History Orthotopic liver transplant (Dai Noonan) Coded Allergies: No Known Allergies (Verified , 05/03/16) Medications Reported Meds & Active Scripts Active Reported Prograf (Tacrolimus) 1 Mg Cap 1 Mg PO TID Family History Mother -stomach cancer Father stroke Sister Cryptogenic liver disease Social History Lives with 2 daughter no tobacco use No ETOH use (Dai Noonan) GI Exam Vitals I&O Vital Signs Date Time Temp Pulse Resp B/P Pulse Ox O2 Delivery O2 Flow Rate FiO2 05/04/16 12:33 97.6 88 18 149/84 97 05/04/16 08:31 98.2 81 17 142/85 98 05/04/16 04:00 96.7 83 18 133/77 95 05/04/16 00:00 98.7 92 18 140/64 93 05/03/16 19:53 21 05/03/16 19:11 83 16 172/95 100 Room Air 05/03/16 18:00 78 17 146/76 99 Room Air 05/03/16 16:53 20 05/03/16 15:30 89 17 148/86 98 Room Air 05/03/16 13:18 98.1 94 17 141/91 98 Laboratory Test 05/03/16 05/03/16 05/03/16 05/03/16 15:15 18:00 20:40 21:40 White Blood Count 6.6 TH/MM3 Red Blood Count 4.36 MIL/MM3 Hemoglobin 13.2 GM/DL Hematocrit 38.6 % Mean Corpuscular Volume 88.5 FL Mean Corpuscular Hemoglobin 30.2 PG Mean Corpuscular Hemoglobin 34.1 % Concent Red Cell Distribution Width 24.2 % Platelet Count 132 TH/MM3 Mean Platelet Volume 9.2 FL Neutrophils (%) (Auto) % Lymphocytes (%) (Auto) % Monocytes (%) (Auto) % Eosinophils (%) (Auto) % Basophils (%) (Auto) % Neutrophils # (Auto) TH/MM3 Lymphocytes # (Auto) TH/MM3 Monocytes # (Auto) TH/MM3 Eosinophils # (Auto) TH/MM3 Basophils # (Auto) TH/MM3 CBC Comment AUTO DIFF Differential Total Cells 100 Counted Neutrophils % (Manual) 62 % Band Neutrophils % 1 % Lymphocytes % 27 % Monocytes % 7 % Eosinophils % 2 % Basophils % 1 % Neutrophils # (Manual) 4.2 TH/MM3 Differential Comment FINAL DIFF MANUAL Platelet Estimate LOW Platelet Morphology Comment NORMAL Target Cells 1+ Prothrombin Time 10.7 SEC Prothromb Time International 1.0 RATIO Ratio Activated Partial 26.8 SEC Thromboplast Time Sodium Level 141 MEQ/L Potassium Level 4.3 MEQ/L Chloride Level 109 MEQ/L Carbon Dioxide Level 23.5 MEQ/L Anion Gap 9 MEQ/L Blood Urea Nitrogen 27 MG/DL Creatinine 1.62 MG/DL Estimat Glomerular Filtration 32 ML/MIN Rate Random Glucose 146 MG/DL Lactic Acid Level 0.8 mmol/L Calcium Level 9.4 MG/DL Total Bilirubin 15.7 MG/DL Aspartate Amino Transf 102 U/L (AST/SGOT) Alanine Aminotransferase 90 U/L (ALT/SGPT) Alkaline Phosphatase 456 U/L Ammonia LESS THAN 10 LESS THAN 10 MCMOL/L MCMOL/L Total Protein 6.9 GM/DL Albumin 2.8 GM/DL Lipase 88 U/L Urine Color LENORE Urine Turbidity HAZY Urine pH 5.0 Urine Specific [place] 1.015 Urine Protein TRACE mg/dL Urine Glucose (UA) NEG mg/dL Urine Ketones NEG mg/dL Urine Occult Blood NEG Urine Nitrite NEG Urine Bilirubin LARGE Urine Urobilinogen LESS THAN 2.0 MG/DL Urine Leukocyte Esterase MOD Urine RBC LESS THAN 1 /hpf Urine WBC 4 /hpf Urine Squamous Epithelial 1 /hpf Cells Urine Bacteria OCC /hpf Urine Hyaline Casts 1 /lpf Urine Mucus FEW /lpf Microscopic Urinalysis Comment CULT NOT INDICATED Tacrolimus (Prograf) Level 11.7 NG/ML Test 05/04/16 08:41 White Blood Count 4.7 TH/MM3 Red Blood Count 4.04 MIL/MM3 Hemoglobin 12.2 GM/DL Hematocrit 35.6 % Mean Corpuscular Volume 88.3 FL Mean Corpuscular Hemoglobin 30.3 PG Mean Corpuscular Hemoglobin 34.3 % Concent Red Cell Distribution Width 22.9 % Platelet Count 114 TH/MM3 Mean Platelet Volume 9.2 FL Neutrophils (%) (Auto) % Lymphocytes (%) (Auto) % Monocytes (%) (Auto) % Eosinophils (%) (Auto) % Basophils (%) (Auto) % Neutrophils # (Auto) TH/MM3 Lymphocytes # (Auto) TH/MM3 Monocytes # (Auto) TH/MM3 Eosinophils # (Auto) TH/MM3 Basophils # (Auto) TH/MM3 CBC Comment AUTO DIFF Differential Total Cells 100 Counted Neutrophils % (Manual) 94 % Band Neutrophils % 3 % Lymphocytes % 3 % Neutrophils # (Manual) 4.6 TH/MM3 Differential Comment FINAL DIFF MANUAL Platelet Estimate LOW Platelet Morphology Comment NORMAL Target Cells 1+ Sodium Level 140 MEQ/L Potassium Level 4.4 MEQ/L Chloride Level 111 MEQ/L Carbon Dioxide Level 18.5 MEQ/L Anion Gap 11 MEQ/L Blood Urea Nitrogen 30 MG/DL Creatinine 1.52 MG/DL Estimat Glomerular Filtration 35 ML/MIN Rate Random Glucose 258 MG/DL Calcium Level 8.7 MG/DL Magnesium Level 1.6 MG/DL Total Bilirubin 14.2 MG/DL Direct Bilirubin 11.5 MG/DL Indirect Bilirubin 2.7 MG/DL Aspartate Amino Transf 77 U/L (AST/SGOT) Alanine Aminotransferase 74 U/L (ALT/SGPT) Alkaline Phosphatase 441 U/L Total Protein 6.0 GM/DL Albumin 2.4 GM/DL Acetaminophen Level LESS THAN 2.0 MCG/ML Physical Examination HEENT: Pupils round and reactive to light; normocephalic; atraumatic; jaundice. Throat is clear. NECK: Neck is supple, no JVD, no lymphadenopathy. CHEST: Chest is clear to auscultation and percussion. CARDIAC: Regular rate and rhythm with no murmur gallop or rubs. ABDOMEN: Soft, nondistended, nontender; no hepatosplenomegaly; bowel sounds are present in all four quadrants. EXTREMITIES: No clubbing, cyanosis, or edema. SKIN: Jaundice [employer]: No focal deficits; alert and oriented times three. (Dai Noonan [facility]) Assessment and Plan Assessment: (1) Liver transplant rejection Plan: acute Plan 60 year old female with acute liver transplant rejection, was off Prograf for 6 weeks due to financial constraints. Liver US don today showed no evidence of portal vein thrombosis. She has been started on IV steroids, Prograf resumed, Ammonia level is not elevated, no coagulopathy. LFT's show total bilirubin of 14.2, Direct bilirubin 11.5, indirect bilirubin 2.7, AST 77, ALT 74, Alk phos 441. She is complaining of pain from hemorrhoids. Plan Will increase Solumedrol to 200 mg TID for 3 days -Continue Prograf -Follow LFT's -Advance diet to Heart Healthy -Needs to follow at Transplant Center,this was discussed at length with the patient -Anusol Sup -Supportive care -Further recommendations will follow Patient was seen and examined by Dr. Byrne and myself, this note is written on his behalf. (Dai Noonan) Physician Comments Seen and examined with GENARO, history reviewed. Solumederol dosage increased. Pts. daughter will bring in records from home tomorrow. Will call [facility] tomorrow once get contact information. Apparently pt. has been following with them since 1995. She says she went to [facility] April 26 but was turned away due to problems with referral and also because she owed [facility] money. Suspect acute rejection. Discussed with dr. Johns. Will follow. Thank you (Cassidy Byrne MD) Dai Noonan May 04, 2016 13:23 Cassidy Byrne MD May 04, 2016 17:36
[2016-05-04] MEDS ORDERED: PRAMOXINE 1% RECTAL FOAM 15 GM CAN RECTAL SCH (14:00)
--- NOTE | 2016-05-04 14:56 | EKG ---
Date Performed: 05/03/2016 Time Performed: 16:51:50 PTAGE: 60 years EKG: Sinus rhythm Compared to prior tracing no significant change NORMAL ECG PREVIOUS TRACING : 05/26/2010 10.58 DOCTOR: Chris Pickering Interpretating Date/Time 05/04/2016 14:53:02
[2016-05-04] MEDS: methylPREDNISolone SOD SUCC 125 MG/2 ML VIAL IV SCH (16:17)
[2016-05-04] MEDS: HYDROCORTISONE ACETATE 25 MG SUPP RECTAL SCH (18:00)
[2016-05-04] MEDS: KETOROLAC TROMETHAMINE 30 MG/ML (IVP) VIAL IV PUSH PRN (18:55)
[2016-05-04] MEDS ORDERED: GLUCAGON 1 MG/ML VIAL OTHER PRN (21:30)
[2016-05-04] MEDS ORDERED: DEXTROSE 50% IN WATER 50 ML VIAL(D50) IV PUSH PRN (21:30)
[2016-05-05] VITALS (8 sets, daily range): BP systolic 131–146; BP diastolic 66–82; PULSE 84–99; RESP 16–21; TEMP 97.2–98.3; O2SAT 94–98
[2016-05-05] MEDS: TEMAZEPAM 15 MG CAP PO PRN ×2 (01:01→20:56)
[2016-05-05] MEDS: KETOROLAC TROMETHAMINE 30 MG/ML (IVP) VIAL IV PUSH PRN ×2 (01:02→21:03)
[2016-05-05] MEDS: methylPREDNISolone SOD SUCC 125 MG/2 ML VIAL IV SCH ×3 (01:03→18:10)
[2016-05-05] MEDS: 1/2 NS + KCL 20 MEQ INJ 1,000 ML IV SCH ×3 (01:11→21:06)
[2016-05-05] MEDS: INSULIN ASPART SUPPLEMENTAL SCALE SQ SCH ×5 (01:30→21:15)
[2016-05-05] MEDS: ONDANSETRON HCL 4 MG/2 ML VIAL IVP PRN (01:41)
[2016-05-05 09:20] LABS: BICARBONATE 18.6 MEQ/L (21.0-32.0); INDIRECT BILIRUBIN 3.4 MG/DL (0.0-0.8); MAGNESIUM 1.5 MG/DL (1.5-2.5); POTASSIUM 4.2 MEQ/L (3.5-5.1); TOTAL BILIRUBIN ADULT 14.8 MG/DL (0.2-1.0)
[2016-05-05] MEDS: TACROLIMUS 1 MG CAP PO SCH ×3 (10:50→18:10)
[2016-05-05] MEDS: SODIUM CHLORIDE 0.9% FLUSH 5 ML FLUSH FLUSH SCH ×2 (10:50→21:06)
[2016-05-05] MEDS: HYDROCORTISONE ACETATE 25 MG SUPP RECTAL SCH ×3 (10:50→18:10)
--- NOTE | 2016-05-05 13:30 | HHI.PR ---
Subjective Remarks Pt with continued diarrhea. NO abdominal pain. Dark urine & light colored stool. No confusion. continued generalized pruritus. Objective Vitals Vital Signs Date Time Temp Pulse Resp B/P Pulse Ox O2 Delivery O2 Flow Rate FiO2 05/05/16 12:00 97.2 99 20 131/71 97 05/05/16 09:30 94 21 05/05/16 08:00 97.4 95 20 140/72 95 05/05/16 05:22 97.2 84 20 145/75 96 05/05/16 00:00 97.9 96 18 134/66 97 05/04/16 20:00 97.2 102 20 160/83 96 05/04/16 18:50 99 21 05/04/16 16:30 96.8 91 18 154/72 99 05/04/16 05/04/16 05/05/16 15:00 23:00 07:00 Intake Total 912 ml 672 ml Balance 912 ml 672 ml Intake Oral 240 ml IV Total 672 ml 672 ml # Voids 2 3 1 # Bowel Movements 2 3 1 Result Diagram: 05/04/16 0841 05/05/16 07 Other Results Item Value Date Time Total Bilirubin 14.2 MG/DL H 05/04/16 0841 Total Bilirubin 14.8 MG/DL H 05/05/16 0715 Direct Bilirubin 11.5 MG/DL H 05/04/16 0841 Direct Bilirubin 11.4 MG/DL H 05/05/16 0715 Indirect Bilirubin 2.7 MG/DL H 05/04/16 0841 Indirect Bilirubin 3.4 MG/DL H 05/05/16 0715 Aspartate Amino Transf (AST/SGOT) 77 U/L H 05/04/16 0841 Aspartate Amino Transf (AST/SGOT) 90 U/L H 05/05/16 0715 Alanine Aminotransferase (ALT/SGPT) 74 U/L H 05/04/16 0841 Alanine Aminotransferase (ALT/SGPT) 89 U/L H 05/05/16 0715 Alkaline Phosphatase 441 U/L H 05/04/16 0841 Alkaline Phosphatase 437 U/L H 05/05/16 0715 Ammonia LESS THAN 10 MCMOL/L L 05/03/160 Imaging Gallbladder ultrasound ([id number]) - Nodular liver consistent with cirrhosis - No evidence of portal vein thrombosis A/P Problem List: (1) Liver transplant rejection Status: Acute Plan: - Comgmt with GI, Dr. Byrne - Patient was off Prograf for 6 weeks, due to financial constraints - Patient recently hospitalized at [facility] in March 2016 - liver US (05/04/16) - NO evidence of portal vein thrombosis - On 381: Total bilirubin 17.7, alkaline phosphatase 439, AST 102, ALT 95 - on 05/05 Total bilirubin 14.8 - IV Solu-Medrol 200mg TID - Prograf continued - Atarax prn - Prograf level 11.7 (05/03/16) - No coagulopathy - ammonia level is NOT elevated - Tylenol level less than 2 - Case d/w Dr. Byrne (05/04/16) - Dr. Byrne will discuss case with Liver specialist at [facility] for further recommendations - for now continue IVFs, high dose IV steroids, and repeat BMP, LFTs in AM. Atrax prn. 05/05/16 - will continue treatment plan as outlined above (2) Elevated blood pressure reading Status: Acute Plan: - Patient was discharged in [facility] on Norvasc and atenolol - Not clear if patient was taking this in the outpatient setting - Observe blood pressure readings - Catapres prn, vasotec prn (3) Hemorrhoids, external Status: Acute Plan: - ProctoFoam (4) Steroid-induced hyperglycemia Status: Acute Plan: - obtain HgA1C - start levemir 10 units BID - Ky Rapp DO May 05, 2016 13:30
--- NOTE | 2016-05-05 15:38 | HHI.GIFU ---
Subjective Remarks Resting in bed. C/O headache and feeling tired, but otherwise okay. No n/v. (Alexandra Velasquez) Objective Vitals I&O Vital Signs Date Time Temp Pulse Resp B/P Pulse Ox O2 Delivery O2 Flow Rate FiO2 05/05/16 12:00 97.2 99 20 131/71 97 05/05/16 09:30 94 21 05/05/16 08:00 97.4 95 20 140/72 95 05/05/16 05:22 97.2 84 20 145/75 96 05/05/16 00:00 97.9 96 18 134/66 97 05/04/16 20:00 97.2 102 20 160/83 96 05/04/16 18:50 99 21 05/04/16 16:30 96.8 91 18 154/72 99 I/O 05/04/16 05/04/16 05/04/16 05/05/16 05/05/16 05/05/16 07:00 15:00 23:00 07:00 15:00 23:00 Intake Total 912 ml 672 ml Balance 912 ml 672 ml Intake Oral 240 ml IV Total 672 ml 672 ml # Voids 2 3 1 3 # Bowel Movements 2 3 1 Laboratory Laboratory Tests Test 05/05/16 07:15 Sodium Level 139 Potassium Level 4.2 Chloride Level 108 Carbon Dioxide Level 18.6 Anion Gap 12 Blood Urea Nitrogen 33 Creatinine 1.47 Estimat Glomerular Filtration 36 Rate Random Glucose 221 Calcium Level 8.8 Magnesium Level 1.5 Total Bilirubin 14.8 Direct Bilirubin 11.4 Indirect Bilirubin 3.4 Aspartate Amino Transf 90 (AST/SGOT) Alanine Aminotransferase 89 (ALT/SGPT) Alkaline Phosphatase 437 Total Protein 6.4 Albumin 2.6 Imaging Last Impressions Gall Bladder Ultrasound 05/03/16 0000 Signed Impressions: Service Date/Time: Tuesday, May 03, 2016 15:54 - CONCLUSION: Nodular liver which could suggest some degree of cirrhosis in the correct clinical situation. Joe Guerrier MD ADDENDUM: I been asked to review the study. There is normal flow in the portal vein and hepatic veins. The hepatic artery was not examined. Joe Guerrier MD Chest X-Ray 05/03/16 0000 Signed Impressions: Service Date/Time: [place], May 03, 2016 16:50 - CONCLUSION: No acute disease. John Drew MD Physical Exam HEENT: Normocephalic; atraumatic; no jaundice. CHEST: CTA CARDIAC: Regular rate and rhythm with no murmur gallop or rubs. ABDOMEN: Soft, nondistended, nontender; bowel sounds are present in all four quadrants. EXTREMITIES: No clubbing, cyanosis, or edema. SKIN: Normal; no rash; no jaundice. FABRIC CUTTER: No focal deficits; alert and oriented times three. (Alexandra Velasquez) Assessment and Plan Plan ASSESSMENT: - Elevated LFTs in patient with liver transplant. 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 Pt has followed at [facility] since 1995. She was recently hospitalized for possible rejection in March after being off her Prograf x 6 weeks. She underwent liver biopsy at that time (12/07)----> mild acute cellular rejection with associated endotheliitis, no evidence of ductopenia, focal bridging fibrosis (stage 2-3). CMV was pending. Of note, her T. Bili at that time was 10.2. She was granted assistance for prograff through [employer] and acorrding to the notes, a 90 day supply was to be delivered on 03/26/16. The patient reports that she has since been taking these as prescribed- 2mg in am and 1mg at night. Her tacrolimus level was 11.7 on admission. Gall Bladder Ultrasound (05/03/16)----- > Nodular liver which could suggest some degree of cirrhosis in the correct clinical situation. ADDENDUM: I been asked to review the study. There is normal flow in the portal vein and hepatic veins. The hepatic artery was not examined. LFTs have remained elevated, T. Bili 14.8, Direct Bilirubin 11.4, AST 90, ALT 89, Alk Phosph 437. Liver practice coordinator is Deana Rizo . Call placed to notify of patient's hospitalization and condition for further recommendations. Spoke to Bozena, states that patient has "significant financial debt to the hospital" and was recently told to get established with local physician to help with labs/ medications and patient has not done so. She states that we will need to speak to compliance professional physician- Dr. Wayen Cheema, regarding patient's condition, labs, recommendations. call placed- awaiting call back. Plan - CELSO- Heart healthy - Cont. Solumedrol 200mg IV q8h - Cont. Prograf - Monitor labs closely - Supportive care - Liver practice coordinator is Deana Rizo . Call placed to notify of patient's hospitalization and condition for further recommendations. Spoke to Bozena, states that patient has "significant financial debt to the hospital" and was recently told to get established with local physician to help with labs/ medications and patient has not done so. She states that we will need to speak to compliance professional physician- Dr. Wayne Cheema, regarding patient's condition, labs, recommendations. call placed- awaiting call back. - Further recommendations will follow based on results of above - Patient was seen and examined by Dr. Byrne and myself, this note is written on his behalf. (Alexandra Velasquez) Physician Comments Seen and examined with GENARO, contact made with [facility] and case discussed with practice coordinator, awaiting call back from grinder set up operator thread tool regarding further treatment recommendations. (Cassidy Byrne MD) Alexandra Velasquez May 05, 2016 15:38 Cassidy Byrne MD May 05, 2016 21:04
[2016-05-05] MEDS: INSULIN DETEMIR 100 UNITS/ML VIAL SQ SCH (21:04)
[2016-05-05 22:08] LABS: HEMOGLOBIN A1a 0.9 %; HEMOGLOBIN Ao 81.9 %; HEMOGLOBIN LA1C 4.4 %
[2016-05-06] VITALS: BP 165/88; PULSE 78; RESP 20; TEMP 97.6; O2SAT 97
[2016-05-06] MEDS: methylPREDNISolone SOD SUCC 125 MG/2 ML VIAL IV SCH ×3 (01:15→16:17)
[2016-05-06] MEDS: 1/2 NS + KCL 20 MEQ INJ 1,000 ML IV SCH (05:19)
[2016-05-06] MEDS: INSULIN ASPART SUPPLEMENTAL SCALE SQ SCH ×6 (05:20→20:40)
[2016-05-06 06:30] VITALS: BP 114/64; PULSE 63; RESP 18; TEMP 97.5; O2SAT 96
[2016-05-06 08:00] VITALS: BP 120/71; PULSE 64; RESP 20; TEMP 96.9; O2SAT 98
[2016-05-06] MEDS: TACROLIMUS 1 MG CAP PO SCH ×3 (08:32→17:24)
[2016-05-06] MEDS: HYDROCORTISONE ACETATE 25 MG SUPP RECTAL SCH ×3 (08:32→17:24)
[2016-05-06] MEDS: SODIUM CHLORIDE 0.9% FLUSH 5 ML FLUSH FLUSH SCH ×2 (08:34→19:55)
[2016-05-06] MEDS: INSULIN DETEMIR 100 UNITS/ML VIAL SQ SCH ×2 (08:34→19:55)
[2016-05-06 10:10] LABS: BICARBONATE 18.5 MEQ/L (21.0-32.0); INDIRECT BILIRUBIN 2.9 MG/DL (0.0-0.8); MAGNESIUM 1.5 MG/DL (1.5-2.5); POTASSIUM 4.5 MEQ/L (3.5-5.1); TOTAL BILIRUBIN ADULT 13.8 MG/DL (0.2-1.0)
[2016-05-06 12:00] VITALS: BP 109/64; PULSE 76; RESP 20; TEMP 96.5; O2SAT 98
--- NOTE | 2016-05-06 13:29 | HHI.GIFU ---
Subjective Remarks Resting in bed in no distress. No n/v. no abdominal pain. Awaiting call back from Dr. Cheema/Ford at [facility]. (Alexandra Velasquez) Objective Vitals I&O Vital Signs Date Time Temp Pulse Resp B/P Pulse Ox O2 Delivery O2 Flow Rate FiO2 05/06/16 12:00 96.5 76 20 109/64 98 05/06/16 08:00 96.9 64 20 120/71 98 05/06/16 06:30 97.5 63 18 114/64 96 05/06/16 00:00 97.6 78 20 165/88 97 05/05/16 20:00 98.3 97 16 142/82 98 05/05/16 18:34 98 21 05/05/16 16:00 97.5 97 21 146/77 98 I/O 05/05/16 05/05/16 05/05/16 05/06/16 05/06/16 05/06/16 07:00 15:00 23:00 07:00 15:00 23:00 Intake Total 672 ml 480 ml 800 ml Output Total 1 ml Balance 672 ml 479 ml 800 ml Intake Oral 480 ml IV Total 672 ml 800 ml Output Urine Total 1 ml # Voids 1 3 2 # Bowel Movements 1 0 0 Laboratory Laboratory Tests Test 05/05/16 05/06/16 14:45 08:54 Hemoglobin A1c 5.1 Sodium Level 138 Potassium Level 4.5 Chloride Level 107 Carbon Dioxide Level 18.5 Anion Gap 13 Blood Urea Nitrogen 38 Creatinine 1.66 Estimat Glomerular Filtration 32 Rate Random Glucose 237 Calcium Level 8.8 Magnesium Level 1.5 Total Bilirubin 13.8 Direct Bilirubin 10.9 Indirect Bilirubin 2.9 Aspartate Amino Transf 98 (AST/SGOT) Alanine Aminotransferase 107 (ALT/SGPT) Alkaline Phosphatase 399 Total Protein 6.1 Albumin 2.5 Imaging Last Impressions Gall Bladder Ultrasound 05/03/16 0000 Signed Impressions: Service Date/Time: Tuesday, May 03, 2016 15:54 - CONCLUSION: Nodular liver which could suggest some degree of cirrhosis in the correct clinical situation. Joe Guerrier MD ADDENDUM: I been asked to review the study. There is normal flow in the portal vein and hepatic veins. The hepatic artery was not examined. Joe Guerrier MD Chest X-Ray 05/03/16 0000 Signed Impressions: Service Date/Time: Tuesday, May 03, 2016 16:50 - CONCLUSION: No acute disease. John Drew MD Physical Exam HEENT: Normocephalic; atraumatic; no jaundice. CHEST: CTA CARDIAC: RRR ABDOMEN: Soft, nondistended, nontender; bowel sounds are present in all four quadrants. EXTREMITIES: No clubbing, cyanosis, or edema. SKIN: Normal; no rash; no jaundice. DRY HOUSE WHEELER: No focal deficits; alert and oriented times three. 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 Pt has followed at [facility] since 1995. She was recently hospitalized for possible rejection in March after being off her Prograf x 6 weeks. She underwent liver biopsy at that time (12/07)----> mild acute cellular rejection with associated endotheliitis, no evidence of ductopenia, focal bridging fibrosis (stage 2-3). CMV was pending. Of note, her T. Bili at that time was 10.2. She was granted assistance for prograff through [employer] and acorrding to the notes, a 90 day supply was to be delivered on 03/26/16. The patient reports that she has since been taking these as prescribed- 2mg in am and 1mg at night. Her tacrolimus level was 11.7 on admission. Gall Bladder Ultrasound (05/03/16)----- > Nodular liver which could suggest some degree of cirrhosis in the correct clinical situation. ADDENDUM: I been asked to review the study. There is normal flow in the portal vein and hepatic veins. The hepatic artery was not examined. Liver visual coordinator is Deana Rizo . Call placed to notify of patient's hospitalization/records faxed. According to Bozena, patient has "significant financial debt to the hospital" and was recently told to get established with local physician to help with labs/medications and patient has not done so. She states that we will need to speak to electronic communications technician physician re: current hospitalization, further recommendations- Dr. Wayne Cheema, . Call placed, awaiting call back. If no call back in the next hour or so, will call back. LFTs essentially unchanged- T. Bili 13.8, Direct 10.9, Indirect 2.9, AST 98, ALT 107, Alk Phosph 399. Further recommendations to follow after discussing with [place]. Plan - CELSO- Heart healthy - Cont. Solumedrol 200mg IV q8h - Cont. Prograf - Monitor labs closely - Supportive care - Liver visual coordinator is Deana Rizo . Call placed to notify of patient's hospitalization and condition for further recommendations. Spoke to Bozena, states that patient has "significant financial debt to the hospital" and was recently told to get established with local physician to help with labs/ medications and patient has not done so. She states that we will need to speak to electronic communications technician physician- Dr. Wayne Cheema, regarding patient's condition, labs, recommendations. call placed- awaiting call back. - Further recommendations will follow based on results of above - Patient was seen and examined by Dr. Byrne and myself, this note is written on his behalf. (Alexandra Velasquez) Physician Comments Seen and examined with PER DIEM, doing better. LFTs improving. On soulmederol/ prograf. Awaiting call from [place]. If do not receive a call by the end of today will call them again. (Cassidy Byrne MD) Alexandra Velasquez May 06, 2016 13:29 Cassidy Byrne MD May 06, 2016 14:49
--- NOTE | 2016-05-06 14:19 | HHI.PR ---
Subjective Remarks No new complaints. Objective Vitals Vital Signs Date Time Temp Pulse Resp B/P Pulse Ox O2 Delivery O2 Flow Rate FiO2 05/06/16 12:00 96.5 76 20 109/64 98 05/06/16 08:00 96.9 64 20 120/71 98 05/06/16 06:30 97.5 63 18 114/64 96 05/06/16 00:00 97.6 78 20 165/88 97 05/05/16 20:00 98.3 97 16 142/82 98 05/05/16 18:34 98 21 05/05/16 16:00 97.5 97 21 146/77 98 05/05/16 05/05/16 05/06/16 15:00 23:00 07:00 Intake Total 480 ml 800 ml Output Total 1 ml Balance 479 ml 800 ml Intake Oral 480 ml IV Total 800 ml Output Urine Total 1 ml # Voids 3 2 # Bowel Movements 0 0 Result Diagram: 05/04/16 0841 05/06/16 0854 Imaging Gallbladder ultrasound (49324) - Nodular liver consistent with cirrhosis - No evidence of portal vein thrombosis Objective Remarks GENERAL: This is a well-nourished, well-developed patient, in no apparent distress. HEENT: sclera are icteric CARDIOVASCULAR: Regular rate and rhythm without murmurs, gallops, or rubs. RESPIRATORY: Clear to auscultation. Breath sounds equal bilaterally. No wheezes , rales, or rhonchi. GASTROINTESTINAL: Abdomen soft, non-tender, nondistended. Normal active bowel sounds MUSCULOSKELETAL: Extremities without clubbing, cyanosis, or edema. NEURO: Alert & Oriented x4 to person, place, time, situation. Moves all ext x4 SKIN: jaundiced A/P Problem List: (1) Liver transplant rejection Status: Acute Plan: - Comgmt with GI, Dr. Byrne - Patient was off Prograf for 6 weeks, due to financial constraints - Patient recently hospitalized at [facility] in March 2016 - liver US (05/04/16) - NO evidence of portal vein thrombosis - On 381: Total bilirubin 17.7, alkaline phosphatase 439, AST 102, ALT 95 - on 05/05 Total bilirubin 14.8, 05/06 Total Bili 18.8 - IV Solu-Medrol 200mg TID - Prograf continued - Atarax prn - Prograf level 11.7 (05/03/16) - No coagulopathy - ammonia level is NOT elevated - Tylenol level less than 2 - Case d/w Dr. Byrne (05/05/16) - Dr. Byrne will discuss case with Liver specialist at [facility] for further recommendations - for now continue IVFs, high dose IV steroids, and repeat BMP, LFTs in AM. Atrax prn. 05/06/16 - Pt appears comfortable - Total Bilirubin is slowly improving, continue to observe - repeat las in AM - continue current treatment plan as outlined above (2) Elevated blood pressure reading Status: Acute Plan: - Patient was discharged in [facility] on Norvasc and atenolol - Not clear if patient was taking this in the outpatient setting - Observe blood pressure readings - Catapres prn, vasotec prn (3) Hemorrhoids, external Status: Acute Plan: - ProctoFoam (4) Steroid-induced hyperglycemia Status: Acute Plan: - HgA1C 5.1 (05/05/16) - increase levemir to 20 units BID - Ky Rapp DO May 06, 2016 14:19
[2016-05-06 16:00] VITALS: BP 122/72; PULSE 72; RESP 20; TEMP 96.4; O2SAT 98
[2016-05-06] MEDS: ONDANSETRON HCL 4 MG/2 ML VIAL IVP PRN (19:54)
[2016-05-06] MEDS: TEMAZEPAM 15 MG CAP PO PRN (19:54)
[2016-05-06 20:06] VITALS: BP 160/75; PULSE 72; RESP 18; TEMP 97.2; O2SAT 97
[2016-05-07] VITALS: BP 136/61; PULSE 71; RESP 16; TEMP 98.3; O2SAT 97
[2016-05-07 04:15] VITALS: BP 130/70; PULSE 75; RESP 17; TEMP 97; O2SAT 98
[2016-05-07] MEDS: INSULIN ASPART SUPPLEMENTAL SCALE SQ SCH ×4 (05:56→23:44)
[2016-05-07] MEDS: 1/2 NS + KCL 20 MEQ INJ 1,000 ML IV SCH ×2 (05:56→07:56)
[2016-05-07] MEDS: TACROLIMUS 1 MG CAP PO SCH ×2 (07:55→12:06)
[2016-05-07] MEDS: SODIUM CHLORIDE 0.9% FLUSH 5 ML FLUSH FLUSH SCH ×2 (07:55→20:39)
[2016-05-07] MEDS: HYDROCORTISONE ACETATE 25 MG SUPP RECTAL SCH ×3 (07:56→18:00)
[2016-05-07 08:00] VITALS: BP 158/85; PULSE 77; RESP 18; TEMP 97.1; O2SAT 98
[2016-05-07] MEDS: INSULIN DETEMIR 100 UNITS/ML VIAL SQ SCH (08:46)
[2016-05-07 09:05] LABS: BICARBONATE 21.8 MEQ/L (21.0-32.0); INDIRECT BILIRUBIN 2.8 MG/DL (0.0-0.8); MAGNESIUM 1.5 MG/DL (1.5-2.5); POTASSIUM 4.7 MEQ/L (3.5-5.1); TOTAL BILIRUBIN ADULT 12.6 MG/DL (0.2-1.0)
[2016-05-07 12:00] VITALS: BP 154/86; PULSE 78; RESP 18; TEMP 97.1; O2SAT 98
--- NOTE | 2016-05-07 14:16 | HHI.GIFU ---
Subjective Remarks Up in chair. States that the steroids seem to be causing some epigastric discomfort. No n/v. (VelasquezAlexandra Flaquitamachelle LAM) Objective Vitals I&O Vital Signs Date Time Temp Pulse Resp B/P Pulse Ox O2 Delivery O2 Flow Rate FiO2 05/07/16 12:00 97.1 78 18 154/86 98 05/07/16 08:00 97.1 77 18 158/85 98 05/07/16 04:15 97.0 75 17 130/70 98 05/07/16 00:00 98.3 71 16 136/61 97 05/06/16 20:06 97.2 72 18 160/75 97 05/06/16 16:00 96.4 72 20 122/72 98 I/O 05/06/16 05/06/16 05/06/16 05/07/16 05/07/16 05/07/16 07:00 15:00 23:00 07:00 15:00 23:00 Intake Total 800 ml 900 ml Balance 800 ml 900 ml Intake Oral 900 ml IV Total 800 ml # Voids 2 2 4 # Bowel Movements 0 1 1 Laboratory Laboratory Tests Test 05/07/16 07:10 Sodium Level 138 Potassium Level 4.7 Chloride Level 108 Carbon Dioxide Level 21.8 Anion Gap 8 Blood Urea Nitrogen 43 Creatinine 1.71 Estimat Glomerular Filtration 30 Rate Random Glucose 114 Calcium Level 8.4 Magnesium Level 1.5 Total Bilirubin 12.6 Direct Bilirubin 9.8 Indirect Bilirubin 2.8 Aspartate Amino Transf 108 (AST/SGOT) Alanine Aminotransferase 125 (ALT/SGPT) Alkaline Phosphatase 375 Total Protein 5.5 Albumin 2.3 Imaging Last Impressions Gall Bladder Ultrasound 05/03/16 0000 Signed Impressions: Service Date/Time: Tuesday, May 03, 2016 15:54 - CONCLUSION: Nodular liver which could suggest some degree of cirrhosis in the correct clinical situation. Joe Guerrier MD ADDENDUM: I been asked to review the study. There is normal flow in the portal vein and hepatic veins. The hepatic artery was not examined. Joe Guerrier MD Chest X-Ray 05/03/16 0000 Signed Impressions: Service Date/Time: Tuesday, May 03, 2016 16:50 - CONCLUSION: No acute disease. John Drew MD Physical Exam HEENT: Normocephalic; atraumatic; + jaundice. CHEST: CTA CARDIAC: RRR ABDOMEN: Soft, nondistended, mild epigastric tenderness; bowel sounds are present in all four quadrants. EXTREMITIES: No clubbing, cyanosis, or edema. SKIN: Normal; no rash; + jaundice. BUILDING CERTIFIER: No focal deficits; alert and oriented times three. (RonAlexandra Sams GENARO) Assessment and Plan Plan ASSESSMENT: - Elevated LFTs/Liver rejection in patient with liver transplant. Pt with hx of orthotopic liver transplantation at 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 Pt has followed at [facility] since 1995. She was recently hospitalized for possible rejection in March after being off her Prograf x 6 weeks. She underwent liver biopsy at that time (04/02/16)----> mild acute cellular rejection with associated endotheliitis, no evidence of ductopenia, focal bridging fibrosis (stage 2-3). CMV was pending. Of note, her T. Bili at that time was 10.2. She was granted assistance for prograff through [employer] and acorrding to the notes, a 90 day supply was to be delivered on 03/26/16. The patient reports that she has since been taking these as prescribed- 2mg in am and 1mg at night. Her tacrolimus level was 11.7 on admission. Gall Bladder Ultrasound (05/03/16)-----> Nodular liver which could suggest some degree of cirrhosis in the correct clinical situation. ADDENDUM: I been asked to review the study. There is normal flow in the portal vein and hepatic veins. The hepatic artery was not examined. Liver educational technology coordinator is Deana Rizo . Spoke to Dr. Youngblood at [facility] yesterday, who states that [facility] will accept hospital to hospital transplant once this is approved by [facility]. He would like for her to have an MRI/MRCP, but prefer for this to be done at [facility]- to evaluate the bile ducts. He feels that she will likely need a liver transplant, as she has already had her liver for over 20 years. CM following. S/P 3 days of Solumedrol. T. Bili 12.6, AST 108, ALT 125, Alk Phosph 375. - Epigastric discomfort. States that this started after she was started on the solumedrol and always seems to have this with steroids. - MICHEL, worsening. Creat 1.71. Plan - CELSO- Heart healthy - Add Protonix 40mg po daily - Increase Prograf to 1.5 mg q12h, 6am/6pm - Tacrolimus level tomorrow at 4am. - S/P Solumedrol 200mg IV q8h x 3 days - Monitor labs closely - Supportive care - Liver educational technology coordinator is Deana Rizo . Spoke to Dr. Youngblood at [facility], who agreed with 3 days of Solumedrol and increasing Prograf to 1.5mg po BID. He states that [facility] will accept the patient as hospital to hospital tx once this has been approved by [facility]. He suspects that patient will need another liver transplant, as her first transplant was over twenty years ago and she has not had any improvement with steroids. - Further recommendations will follow based on results of above - Patient was seen and examined by Dr. Byrne and myself, this note is written on his behalf. (Alexandra Velasquez) Physician Comments Seen and examined with GENARO, some epigastric discomfort with high dose steroids. LFTs improving. Discussed with Dr. Youngblood from [facility], they will take pt. back but are waiting on insurance approval for Liver transplant. As per them repeat liver transplant very likely. Monitor labs. (Cassidy Byrne MD) Alexandra Velasquez May 07, 2016 14:16 Cassidy Byrne MD May 07, 2016 18:18
--- NOTE | 2016-05-07 14:31 | PD.CONS ---
[facility] Service Nephrology Consult Requested By Reason for Consult ARF Primary Care Physician Sharon Gutierrez MD History of Present Illness This is a 60 y/o female with hx of liver transplant in 1993. She ran out of her prograf for several weeks due to insurance issues. She was on no other medications for rejection. She presented with nausea, vomiting, diarrhea, and abdominal pain with jaundice. Her creatinine was 1.62 on arrival, which initially improved until the , then has been rising. Looking through her records, she was give IV Toradol on the , and 2 doses on the . Her prograf dosage was also increased. She is having abdominal pain during my exam, complaining of nausea, and is ambulatory in the room. The plan is for her to be transferred to [place] when a bed is available. She will need another liver transplant. (Leonela Gibson) Review of Systems Constitutional: COMPLAINS OF: Fatigue Cardiovascular: DENIES: Lower Extremity Edema Gastrointestinal: COMPLAINS OF: Abdominal pain, Diarrhea, Nausea, Vomiting ( Leonela Gibson) Past Family Social History Allergies: Coded Allergies: No Known Allergies (Verified , 05/03/16) Past Medical History cryptogenic cirrhosis s/p OLT HTN migraine headaches Low back pain prior h/o rejection x 4 (per records) Past Surgical History liver tx 1993 Reported Medications Hydroxyzine HCl 25 Mg Tab 25 Mg PO TID PRN Prograf (Tacrolimus) 1 Mg Cap 1 Mg PO TID Active Ordered Medications Current Medications Medications (Trade) Dose Ordered Sig/Raji Route Start Time Stop Time Status Last Admin (Tylenol) 650 mg Q4H PRN PO 05/03/16 19:15 (Compazine Supp) 25 mg Q12H PRN MO 05/03/16 19:15 05/07/16 15:33 (Senokot) 17.2 mg Q12H PRN PO 05/03/16 19:15 (NS Flush) 2 ml UNSCH PRN FLUSH 05/03/16 20:30 05/06/16 01:15 (NS Flush) 2 ml BID FLUSH 05/03/16 21:00 05/06/16 19:55 (Zofran Inj) 4 mg Q6H PRN IVP 05/03/16 20:30 05/07/16 14:47 (Dulcolax Supp) 10 mg DAILY PRN MO 05/03/16 20:30 (Milk Of Magnesia Liq) 30 ml Q12H PRN PO 05/03/16 20:30 (Restoril) 15 mg HS PRN PO 05/03/16 20:30 05/06/16 19:54 Naloxone HCl 0.4 mg 0.4 mg UNSCH PRN IV 05/03/16 20:30 (1/2 NS + KCl 20 Meq Inj) 1,000 ml @ 84 mls/hr [id number] IV 05/03/16 20:45 05/07/16 05:56 (Atarax) 25 mg Q6H PRN PO 05/03/16 20:45 05/04/16 18:42 (Catapres) 0.2 mg Q6H PRN PO 05/04/16 09:45 05/06/16 01:09 (Vasotec Inj) 1.25 mg Q6H PRN IV 05/04/16 09:45 (Hemorrhoidal Hc Supp) 25 mg TID RECTAL 05/04/16 18:00 05/06/16 17:24 (D50w (Vial) Inj) 25 ml UNSCH PRN IV PUSH 05/04/16 21:30 (Glucagon Inj) 1 mg UNSCH PRN OTHER 05/04/16 21:30 (Protonix) 40 mg DAILY PO 05/07/16 15:00 05/07/16 15:33 (Prograf) 1.5 mg DAILY@06,18 PO 05/07/16 18:00 Family History No hx of renal disorders Mother: secondary to stomach cancer Father: DC secondary to stroke Sister: Cryptogenic liver disease, hyperlipidemia Social History single, lives with children (Leonela Gibson) Physical Exam Vital Signs Vital Signs Date Time Temp Pulse Resp B/P Pulse Ox O2 Delivery O2 Flow Rate FiO2 05/07/16 12:00 97.1 78 18 154/86 98 05/07/16 08:00 97.1 77 18 158/85 98 05/07/16 04:15 97.0 75 17 130/70 98 05/07/16 00:00 98.3 71 16 136/61 97 05/06/16 20:06 97.2 72 18 160/75 97 05/06/16 16:00 96.4 72 20 122/72 98 Physical Exam GEN: awake, alert, appropriate affect; holding stomach HEENT: Pupils round and reactive to light; normocephalic; atraumatic; jaundice. Throat is clear. NECK: Neck is supple, no JVD, no lymphadenopathy. CHEST: Chest is clear to auscultation and percussion. CARDIAC: Regular rate and rhythm with no murmur gallop or rubs. ABDOMEN: Soft, nondistended, nontender; no hepatosplenomegaly; bowel sounds are present in all four quadrants. upper abdominal scar s/p liver transplant EXTREMITIES: No clubbing, cyanosis, or edema. SKIN: Jaundice, intact DIRECTOR OF CLOUD SERVICES: No focal deficits; alert and oriented times three. Laboratory Laboratory Tests Test 05/07/16 07:10 Sodium Level 138 Potassium Level 4.7 Chloride Level 108 Carbon Dioxide Level 21.8 Anion Gap 8 Blood Urea Nitrogen 43 Creatinine 1.71 Estimat Glomerular Filtration 30 Rate Random Glucose 114 Calcium Level 8.4 Magnesium Level 1.5 Total Bilirubin 12.6 Direct Bilirubin 9.8 Indirect Bilirubin 2.8 Aspartate Amino Transf 108 (AST/SGOT) Alanine Aminotransferase 125 (ALT/SGPT) Alkaline Phosphatase 375 Total Protein 5.5 Albumin 2.3 (Leonela Gibson) Result Diagram: 05/04/16 0841 05/07/16 0710 Imaging Last Impressions Gall Bladder Ultrasound 05/03/16 0000 Signed Impressions: Service Date/Time: Tuesday, May 03, 2016 15:54 - CONCLUSION: Nodular liver which could suggest some degree of cirrhosis in the correct clinical situation. Joe Guerrier MD ADDENDUM: I been asked to review the study. There is normal flow in the portal vein and hepatic veins. The hepatic artery was not examined. Joe Guerrier MD Chest X-Ray 05/03/16 0000 Signed Impressions: Service Date/Time: Tuesday, May 03, 2016 16:50 - CONCLUSION: No acute disease. John Drew MD (Leonela Gibson) Assessment and Plan Problem List: (1) Acute renal failure Plan: in a pt with no recent labs for comparison she was admitted with abnormal creatinine in the setting or poor oral intake, nausea/vomiting, and diarrhea that improved with fluids, it is likely MICHEL is prerenal as she was dehydrated on arrival her renal function then worsened which coincided with a few doses of IV toradol and increased doses of Prograf no electrolyte concerns currently she is non oliguric at this time I have stopped the ordered Toradol, she is on IVF which can continue monitor renal function her tacrolimus level is acceptable but borderline high for renal toxicity UA benign obtain renal US, urine electrolytes hepatorenal syndrome must be considered in any patient with ARF in the setting of hepatic failure, but this is a diagnosis of exclusion so one must rule out all other causes first (2) Liver transplant rejection Plan: she was given IV solumedrol on tacrolimus bid the plan is to transfer to [place] for continued care when a bed is available (Leonela Gibson) Assessment and Plan patient was seen and examined. Agree with above assessment and plan. Recommend transfer to tertiary center. (Joaquin Alcaraz MD) Leonela Gibson May 07, 2016 14:31 Joaquin Alcaraz MD May 09, 2016 17:23
--- NOTE | 2016-05-07 14:45 | HHI.PR ---
Subjective Remarks Pt with complaints of epigastric abdominal pain/cramping and indigestion She had one episode of vomiting today. Afebrile Objective Vitals Vital Signs Date Time Temp Pulse Resp B/P Pulse Ox O2 Delivery O2 Flow Rate FiO2 05/07/16 12:00 97.1 78 18 154/86 98 05/07/16 08:00 97.1 77 18 158/85 98 05/07/16 04:15 97.0 75 17 130/70 98 05/07/16 00:00 98.3 71 16 136/61 97 05/06/16 20:06 97.2 72 18 160/75 97 05/06/16 16:00 96.4 72 20 122/72 98 05/06/16 05/06/16 05/07/16 15:00 23:00 07:00 Intake Total 900 ml Balance 900 ml Intake Oral 900 ml # Voids 2 4 # Bowel Movements 1 1 Result Diagram: 05/04/16 0841 05/07/16 0710 Other Results Laboratory Tests Test 05/05/16 05/06/16 05/07/16 14:45 08:54 07:10 Hemoglobin A1c 5.1 % Sodium Level 138 MEQ/L 138 MEQ/L Potassium Level 4.5 MEQ/L 4.7 MEQ/L Chloride Level 107 MEQ/L 108 MEQ/L Carbon Dioxide Level 18.5 MEQ/L 21.8 MEQ/L Anion Gap 13 MEQ/L 8 MEQ/L Blood Urea Nitrogen 38 MG/DL 43 MG/DL Creatinine 1.66 MG/DL 1.71 MG/DL Estimat Glomerular Filtration 32 ML/MIN 30 ML/MIN Rate Random Glucose 237 MG/DL 114 MG/DL Calcium Level 8.8 MG/DL 8.4 MG/DL Magnesium Level 1.5 MG/DL 1.5 MG/DL Total Bilirubin 13.8 MG/DL 12.6 MG/DL Direct Bilirubin 10.9 MG/DL 9.8 MG/DL Indirect Bilirubin 2.9 MG/DL 2.8 MG/DL Aspartate Amino Transf 98 U/L 108 U/L (AST/SGOT) Alanine Aminotransferase 107 U/L 125 U/L (ALT/SGPT) Alkaline Phosphatase 399 U/L 375 U/L Total Protein 6.1 GM/DL 5.5 GM/DL Albumin 2.5 GM/DL 2.3 GM/DL Imaging Gallbladder ultrasound (15246) - Nodular liver consistent with cirrhosis - No evidence of portal vein thrombosis Objective Remarks General: NAD, AAOx3, jaundiced ENT: Scleral icterus Chest: CTA Cardiac: Regular Abd: +BS, soft ND, epigastric discomfort Ext: No edema A/P Problem List: (1) Liver transplant rejection Status: Acute Plan: - Comgmt with GI, Dr. Byrne - Patient was off Prograf for 6 weeks, due to financial constraints - Patient recently hospitalized at [facility] in March 2016 - liver US (05/04/16) - NO evidence of portal vein thrombosis - On 3816: Total bilirubin 17.7, alkaline phosphatase 439, AST 102, ALT 95 - TBili was 14.8 (05/05) --> 13.8 (05/06) --> 12.6 (05/07) - Pt received IV Solu-Medrol 200mg TID x 3 days - Prograf continued, but increased to 1.5 mg q12h, 6am/6pm on 05/07 - Atarax prn - Prograf level 11.7 (05/03/16) - Tacrolimus level tomorrow at 4am. - No coagulopathy - Tylenol level less than 2 - Protonix 40mg po daily added on 05/07 - GI has spoken with the liver costume shop coordinator and to Dr. Youngblood at [place], who agreed with 3 days of Solumedrol and increasing Prograf to 1.5mg po BID. He states that [place] will accept the patient as in transfer once this has been approved by [facility]. - Per the conversation between the GI team and Dr. Youngblood it is suspected that patient will need another liver transplant, as her first transplant was over twenty years ago and she has not had any improvement with steroids. (2) Elevated blood pressure reading Status: Acute Plan: - Patient was discharged in [facility] on Norvasc and atenolol - Not clear if patient was taking this in the outpatient setting - BP is intermittently elevated - Catapres prn, Vasotec prn (3) Hemorrhoids, external Status: Acute Plan: - ProctoFoam (4) Steroid-induced hyperglycemia Status: Acute Plan: - HgA1C 5.1 (05/05/16) - Levemir increased to 20 units BID on 05/06, stopped this morning as steroids were stopped - SSI - Now that steroids have been stopped this should improve, monitor closely (5) Acute on chronic renal insufficiency Status: Acute Plan: - Review of outpt records indicate that her previous labs in 2009 her Cr was 1.22 - Renal function has been worsening recently - IVF - Consult nephrology Assessment and Plan Patient examined. Assessment and plan formulated with Deana Clemente PA-C. I agree with the above. Deana Clemente May 07, 2016 14:45 Ky Johns DO May 08, 2016 15:33
[2016-05-07] MEDS: ONDANSETRON HCL 4 MG/2 ML VIAL IVP PRN ×2 (14:47→20:36)
[2016-05-07] MEDS: PANTOPRAZOLE SOD 40 MG DELAYED RELEASE TAB PO SCH (15:33)
[2016-05-07 16:00] VITALS: BP 138/76; PULSE 88; RESP 18; TEMP 97.1; O2SAT 98
[2016-05-07] MEDS: TACROLIMUS 0.5 MG CAP PO SCH (18:30)
--- NOTE | 2016-05-07 19:40 | RADRPT ---
EXAM DATE/TIME: 05/07/2016 17:24 [place] COMPARISON: No previous studies available for comparison. INDICATIONS : Increased BUN/creatinine. MEDICAL HISTORY : Cirrhosis. Gallstones. Abdominal pain. Nausea/vomiting. Pruritis. SURGICAL HISTORY : Cholecystectomy. section. D&C. Liver transplant. Blood transfusions. ENCOUNTER: Initial ACUITY: 1 day PAIN SCORE: 4/10 LOCATION: Bilateral flank MEASUREMENTS: RIGHT KIDNEY: 10.0 x 4.9 x 4.0 cm LEFT KIDNEY: 8.7 x 4.6 x 4.6 cm FINDINGS: RIGHT KIDNEY: The right kidney appears mildly atrophic with cortical thinning and increased echogenicity equal to t hat of adjacent liver. There is no focal mass or hydronephrosis. LEFT KIDNEY: The left kidney is atrophic with cortical thinning increased echogenicity. There is no focal mass or hydronephrosis. BLADDER: Within normal limits given the degree of distension. CONCLUSION: 1. Small atrophic kidneys left greater than right this echogenicity consistent with medical renal dis ease. 2. There is no hydronephrosis. Yan Anand MD on May 07, 2016 at 19:38 Board Certified Radiologist. This report was verified electronically.
[2016-05-07 20:29] VITALS: BP 155/83; PULSE 91; RESP 17; TEMP 98; O2SAT 100
[2016-05-07] MEDS: TEMAZEPAM 15 MG CAP PO PRN (20:37)
[2016-05-08 01:01] VITALS: BP 120/65; PULSE 95; RESP 17; TEMP 98.6; O2SAT 99
[2016-05-08 04:32] VITALS: BP 134/75; PULSE 89; RESP 16; TEMP 98.5; O2SAT 99
[2016-05-08] MEDS: TACROLIMUS 0.5 MG CAP PO SCH ×2 (05:21→18:00)
[2016-05-08] MEDS: 1/2 NS + KCL 20 MEQ INJ 1,000 ML IV SCH ×2 (05:35→22:58)
[2016-05-08] MEDS: INSULIN ASPART SUPPLEMENTAL SCALE SQ SCH ×4 (05:35→21:00)
[2016-05-08 08:00] VITALS: BP 127/61; PULSE 76; RESP 18; TEMP 98.1; O2SAT 97
[2016-05-08 08:52] LABS: ALKALINE PHOSPHATASE 385 U/L (45-117); ALT (GPT) 165 U/L (10-53); ANION GAP 9 MEQ/L (5-15); AST (GOT) 141 U/L (15-37); BICARBONATE 20.1 MEQ/L (21.0-32.0); BLOOD UREA NITROGEN 40 MG/DL (7-18); CHLORIDE 108 MEQ/L (98-107); GLOMERULAR FILTRATION RATE 31 ML/MIN (>89); MAGNESIUM 1.4 MG/DL (1.5-2.5); POTASSIUM 4.8 MEQ/L (3.5-5.1); SODIUM (NA) 137 MEQ/L (136-145); TOTAL BILIRUBIN ADULT 12.6 MG/DL (0.2-1.0)
[2016-05-08] MEDS: HYDROCORTISONE ACETATE 25 MG SUPP RECTAL SCH ×3 (09:00→17:39)
[2016-05-08] MEDS: SODIUM CHLORIDE 0.9% FLUSH 5 ML FLUSH FLUSH SCH ×2 (09:00→21:00)
[2016-05-08] MEDS: PANTOPRAZOLE SOD 40 MG DELAYED RELEASE TAB PO SCH (09:38)
[2016-05-08 12:00] VITALS: BP 118/67; PULSE 74; RESP 16; TEMP 97.1; O2SAT 99
--- NOTE | 2016-05-08 12:18 | HHI.NPPN ---
Subjective General Problems: Anemia Renal Failure: Acute History of Present Illness 60 y/o female with hx of liver transplant in 1993. She ran out of her prograf for several weeks due to insurance issues. She was on no other medications for rejection. She presented with nausea, vomiting, diarrhea, and abdominal pain with jaundice. Her creatinine was 1.62 on arrival, which initially improved until the 15th, then has been rising. Additional Remarks Patient is alert, sitting on chair, not eating well. Objective Data Data 05/07/16 05/08/16 19:00 07:00 Intake Total 240 ml 240 ml Balance 240 ml 240 ml Intake Oral 240 ml 240 ml # Voids 2 4 Vital Signs Date Time Temp Pulse Resp B/P Pulse Ox O2 Delivery O2 Flow Rate FiO2 05/08/16 08:00 98.1 76 18 127/61 97 05/08/16 04:32 98.5 89 16 134/75 99 05/08/16 01:01 98.6 95 17 120/65 99 05/07/16 20:29 98.0 91 17 155/83 100 05/07/16 16:00 97.1 88 18 138/76 98 -: 05/04/16 0841 05/08/16 0759 Physical Exam General Appearance: No Acute Distress, Comfortable Eyes Eye Exam: Pupils Equal Throat Throat Exam: Oral Mucosa [place] & Moist Neck Neck Exam: Neck Supple Pulmonary Resp Exam: Breath Sounds Equal, No Distress, Decreased Bases Cardiology CV Exam: Regular, Normal Sinus Rhythm Gastrointestinal/Abdomen GI Exam: Soft, Non-Tender, Distended Extremeties Extremities Exam: No Edema Neurologic Neuro Exam: Alert, Awake, Oriented Psychiatric Psych Exam: Appropriate Responses Assessment/Plan Problem List: (1) Acute renal failure Plan: in a pt with no recent labs for comparison she was admitted with abnormal creatinine in the setting or poor oral intake, nausea/vomiting, and diarrhea that improved with fluids, it is likely MICHEL is prerenal as she was dehydrated on arrival her renal function then worsened which coincided with a few doses of IV toradol and increased doses of Prograf no electrolyte concerns currently she is non oliguric at this time I have stopped the ordered Toradol, she is on IVF which can continue monitor renal function her tacrolimus level is acceptable but borderline high for renal toxicity hepatorenal syndrome must be considered in any patient with ARF in the setting of hepatic failure, but this is a diagnosis of exclusion so one must rule out all other causes first. I will get urine Na. and eosinophils. Renal U/S noted. (2) Liver transplant rejection Plan: she was given IV solumedrol on tacrolimus bid the plan is to transfer to [place] for continued care when a bed is available Amalia Swain MD May 08, 2016 12:18
[2016-05-08] MEDS: ONDANSETRON HCL 4 MG/2 ML VIAL IVP PRN (13:53)
--- NOTE | 2016-05-08 15:36 | HHI.PR ---
Subjective Remarks Pt had c/o nausea and abdominal discomfort this AM which has improved following IV Zofran. Objective Vitals Vital Signs Date Time Temp Pulse Resp B/P Pulse Ox O2 Delivery O2 Flow Rate FiO2 05/08/16 12:00 97.1 74 16 118/67 99 05/08/16 08:00 98.1 76 18 127/61 97 05/08/16 04:32 98.5 89 16 134/75 99 05/08/16 01:01 98.6 95 17 120/65 99 05/07/16 20:29 98.0 91 17 155/83 100 05/07/16 16:00 97.1 88 18 138/76 98 05/07/16 05/07/16 05/08/16 15:00 23:00 07:00 Intake Total 240 ml 240 ml Balance 240 ml 240 ml Intake Oral 240 ml 240 ml # Voids 2 4 Result Diagram: 05/04/16 0841 05/08/16 0759 Imaging Gallbladder ultrasound (34679) - Nodular liver consistent with cirrhosis - No evidence of portal vein thrombosis Last Impressions Renal Ultrasound 05/07/16 0000 Signed Impressions: Service Date/Time: Saturday, May 07, 2016 17:24 - CONCLUSION: 1. Small atrophic kidneys left greater than right this echogenicity consistent with medical renal disease. 2. There is no hydronephrosis. Yan Anand MD Gall Bladder Ultrasound 05/03/16 0000 Signed Impressions: Service Date/Time: Tuesday, May 03, 2016 15:54 - CONCLUSION: Nodular liver which could suggest some degree of cirrhosis in the correct clinical situation. Joe Guerrier MD ADDENDUM: I been asked to review the study. There is normal flow in the portal vein and hepatic veins. The hepatic artery was not examined. Joe Guerrier MD Chest X-Ray 05/03/16 0000 Signed Impressions: Service Date/Time: Tuesday, May 03, 2016 16:50 - CONCLUSION: No acute disease. John Drew MD Objective Remarks General: NAD, AAOx3, jaundiced ENT: Scleral icterus Chest: CTA Cardiac: Regular Abd: +BS, soft ND, epigastric discomfort Ext: No edema A/P Problem List: (1) Liver transplant rejection Status: Acute Plan: - Comgmt with GI, Dr. Chavez - Patient was off Prograf for 6 weeks, due to financial constraints - Patient recently hospitalized at [facility] in March 2016 - liver US (05/04/16) - NO evidence of portal vein thrombosis - On 381: Total bilirubin 17.7, alkaline phosphatase 439, AST 102, ALT 95 - TBili was 14.8 (05/05) --> 13.8 (05/06) --> 12.6 (05/07) - Pt received IV Solu-Medrol 200mg TID x 3 days - Prograf continued, but increased to 1.5 mg q12h, 6am/6pm on 05/07 - Atarax prn - Prograf level 11.7 (05/03/16) - Tacrolimus level tomorrow at 4am. - No coagulopathy - Tylenol level less than 2 - Protonix 40mg po daily added on 05/07 - GI has spoken with the liver front office coordinator and to Dr. Youngblood at [place], who agreed with 3 days of Solumedrol and increasing Prograf to 1.5mg po BID. He states that [place] will accept the patient as in transfer once this has been approved by [facility]. - Per the conversation between the GI team and Dr. Youngblood it is suspected that patient will need another liver transplant, as her first transplant was over twenty years ago and she has not had any improvement with steroids. 05/08/16 - Pt interviewed and examined - Continue current treatment plan as outlined above. (2) Elevated blood pressure reading Status: Acute Plan: - Patient was discharged in [facility] on Norvasc and atenolol - Not clear if patient was taking this in the outpatient setting - BP is intermittently elevated - Catapres prn, Vasotec prn (3) Hemorrhoids, external Status: Acute Plan: - ProctoFoam (4) Steroid-induced hyperglycemia Status: Acute Plan: - HgA1C 5.1 (05/05/16) - Levemir increased to 20 units BID on 05/06, stopped this morning as steroids were stopped - SSI - Now that steroids have been stopped this should improve, monitor closely (5) Acute on chronic renal insufficiency Status: Acute Plan: - comgmt with Nephrology - Review of outpt records indicate that her previous labs in 2009 her Cr was 1.22 - continue to observe renal function Ky Johns DO May 08, 2016 15:36
[2016-05-08 16:00] VITALS: BP 141/64; PULSE 70; RESP 18; TEMP 96.9; O2SAT 100
[2016-05-08] MEDS: MAGNESIUM SULFATE 1 GM PREMIX 100 ML IV SCH ×2 (16:32→18:40)
--- NOTE | 2016-05-08 17:14 | HHI.GIFU ---
Subjective Remarks Up in chair. States she is feeling better. Had some epigastric discomfort earlier today, but states this subsided after receiving pain meds. Tolerating diet. (Alexandra Velasquez) Objective Vitals I&O Vital Signs Date Time Temp Pulse Resp B/P Pulse Ox O2 Delivery O2 Flow Rate FiO2 05/08/16 16:00 96.9 70 18 141/64 100 05/08/16 12:00 97.1 74 16 118/67 99 05/08/16 08:00 98.1 76 18 127/61 97 05/08/16 04:32 98.5 89 16 134/75 99 05/08/16 01:01 98.6 95 17 120/65 99 05/07/16 20:29 98.0 91 17 155/83 100 I/O 05/07/16 05/07/16 05/07/16 05/08/16 05/08/16 05/08/16 07:00 15:00 23:00 07:00 15:00 23:00 Intake Total 900 ml 240 ml 240 ml 480 ml Balance 900 ml 240 ml 240 ml 480 ml Intake Oral 900 ml 240 ml 240 ml 480 ml # Voids 4 2 4 3 # Bowel Movements 1 Laboratory Laboratory Tests Test 05/08/16 07:59 Sodium Level 137 Potassium Level 4.8 Chloride Level 108 Carbon Dioxide Level 20.1 Anion Gap 9 Blood Urea Nitrogen 40 Creatinine 1.69 Estimat Glomerular Filtration 31 Rate Random Glucose 144 Calcium Level 7.7 Phosphorus Level 2.8 Magnesium Level 1.4 Total Bilirubin 12.6 Aspartate Amino Transf 141 (AST/SGOT) Alanine Aminotransferase 165 (ALT/SGPT) Alkaline Phosphatase 385 Total Protein 5.0 Albumin 2.0 Tacrolimus (Prograf) Level 22.5 Imaging Last Impressions Renal Ultrasound 05/07/16 0000 Signed Impressions: Service Date/Time: Saturday, May 07, 2016 17:24 - CONCLUSION: 1. Small atrophic kidneys left greater than right this echogenicity consistent with medical renal disease. 2. There is no hydronephrosis. Yan Anand MD Gall Bladder Ultrasound 05/03/16 0000 Signed Impressions: Service Date/Time: Tuesday, May 03, 2016 15:54 - CONCLUSION: Nodular liver which could suggest some degree of cirrhosis in the correct clinical situation. Joe Guerrier MD ADDENDUM: I been asked to review the study. There is normal flow in the portal vein and hepatic veins. The hepatic artery was not examined. Joe Guerrier MD Chest X-Ray 05/03/16 0000 Signed Impressions: Service Date/Time: Tuesday, May 03, 2016 16:50 - CONCLUSION: No acute disease. John Drew MD Physical Exam HEENT: Normocephalic; atraumatic; + jaundice. CHEST: CTA CARDIAC: RRR ABDOMEN: Soft, nondistended, mild epigastric tenderness; bowel sounds are present in all four quadrants. EXTREMITIES: No clubbing, cyanosis, or edema. SKIN: Normal; no rash; + jaundice. FLAT SPRING ASSEMBLER: No focal deficits; alert and oriented times three. 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 Pt has followed at [facility] since 1995. She was recently hospitalized for possible rejection in March after being off her Prograf x 6 weeks. She underwent liver biopsy at that time (04/02/16)----> mild acute cellular rejection with associated endotheliitis, no evidence of ductopenia, focal bridging fibrosis (stage 2-3). CMV was pending. Of note, her T. Bili at that time was 10.2. She was granted assistance for prograff through [employer] and acorrding to the notes, a 90 day supply was to be delivered on 03/26/16. The patient reports that she has since been taking these as prescribed- 2mg in am and 1mg at night. Her tacrolimus level was 11.7 on admission. Gall Bladder Ultrasound (05/03/16)-----> Nodular liver which could suggest some degree of cirrhosis in the correct clinical situation. ADDENDUM: I been asked to review the study. There is normal flow in the portal vein and hepatic veins. The hepatic artery was not examined. Liver medical billing coordinator is Deana Rizo . Spoke to Dr. Youngblood at [place] yesterday, who states that [place] will accept hospital to [facility] transplant once this is approved by [facility]. He would like for her to have an MRI/MRCP, but prefer for this to be done at [place]- to evaluate the bile ducts. He feels that she will likely need a liver transplant, as she has already had her liver for over 20 years. CM following. Awaiting approval from [facility] for liver transplant evaluation. S/ P 3 days of Solumedrol. T. Bili 12.6, AST 141, ALT 1165, Alk Phosph 385. Prograf 1.5mg po BID per [facility]'s recommendations. Tacrolimus level (trough) 22.5 - Epigastric discomfort. States that this started after she was started on the solumedrol and always seems to have this with steroids. PPI. Controlled - MICHEL, worsening. Creat 1.69. IVF per primary. Plan - [facility]- Heart healthy - Protonix 40mg po daily - Prograf po 1.5 mg q12h, 6am/6pm - S/P Solumedrol 200mg IV q8h x 3 days - Monitor labs closely - Supportive care - Liver medical billing coordinator is Deana Rizo . Spoke to Dr. Youngblood at [place], who agreed with 3 days of Solumedrol and increasing Prograf to 1.5mg po BID. He states that [place] will accept the patient as hospital to hospital tx once this has been approved by [facility]. He suspects that patient will need another liver transplant, as her first transplant was over twenty years ago and she has not had any improvement with steroids. - Further recommendations will follow based on results of above - Patient was seen and examined by Dr. Coronel and myself, this note is written on his behalf. (Alexandra Velasquez) Physician Comments Patient seen and examined Agree with above Continue with current supportive care Monitor labs (Shady Coronel MD) Alexandra Velasquez May 08, 2016 17:14 Shady Coronel MD May 08, 2016 17:57
[2016-05-08 20:00] VITALS: BP 124/60; PULSE 92; RESP 20; TEMP 97.7; O2SAT 98
[2016-05-08] MEDS: TEMAZEPAM 15 MG CAP PO PRN (22:53)
[2016-05-09] VITALS: BP 128/73; PULSE 100; RESP 20; TEMP 97.5; O2SAT 98
[2016-05-09 04:00] VITALS: BP 108/54; PULSE 78; RESP 20; TEMP 97.4; O2SAT 98
[2016-05-09] MEDS: TACROLIMUS 0.5 MG CAP PO SCH ×2 (06:19→16:50)
[2016-05-09] MEDS: INSULIN ASPART SUPPLEMENTAL SCALE SQ SCH ×2 (06:23→11:00)
[2016-05-09] MEDS: 1/2 NS + KCL 20 MEQ INJ 1,000 ML IV SCH ×2 (07:50→16:51)
[2016-05-09 08:00] VITALS: BP 135/67; PULSE 82; RESP 17; TEMP 98; O2SAT 99
[2016-05-09] MEDS: HYDROCORTISONE ACETATE 25 MG SUPP RECTAL SCH (08:21)
[2016-05-09] MEDS: PANTOPRAZOLE SOD 40 MG DELAYED RELEASE TAB PO SCH (08:21)
[2016-05-09] MEDS: SODIUM CHLORIDE 0.9% FLUSH 5 ML FLUSH FLUSH SCH ×2 (08:21→20:56)
--- NOTE | 2016-05-09 11:55 | HHI.NPPN ---
Subjective General Problems: Anemia Renal Failure: Acute History of Present Illness 60 y/o female with hx of liver transplant in 1993. She ran out of her prograf for several weeks due to insurance issues. She was on no other medications for rejection. She presented with nausea, vomiting, diarrhea, and abdominal pain with jaundice. Her creatinine was 1.62 on arrival, which initially improved until the 15th, then has been rising. Additional Remarks Patient is alert, no SOB, no nausea. Objective Data Data 05/08/16 05/09/16 19:00 07:00 Intake Total 3433 ml 600 ml Balance 3433 ml 600 ml Intake Oral 480 ml 600 ml IV Total 2953 ml # Voids 3 2 # Bowel Movements 1 Vital Signs Date Time Temp Pulse Resp B/P Pulse Ox O2 Delivery O2 Flow Rate FiO2 05/09/16 08:00 98.0 82 17 135/67 99 05/09/16 04:00 97.4 78 20 108/54 98 05/09/16 00:00 97.5 100 20 128/73 98 05/08/16 20:00 97.7 92 20 124/60 98 05/08/16 16:00 96.9 70 18 141/64 100 05/08/16 12:00 97.1 74 16 118/67 99 -: 05/08/16 0759 Physical Exam General Appearance: No Acute Distress, Comfortable Eyes Eye Exam: Pupils Equal Throat Throat Exam: Oral Mucosa [place] & Moist Neck Neck Exam: Neck Supple Pulmonary Resp Exam: Breath Sounds Equal, No Distress, Decreased Bases Cardiology CV Exam: Regular, Normal Sinus Rhythm Gastrointestinal/Abdomen GI Exam: Soft, Non-Tender, Distended Extremeties Extremities Exam: No Edema Neurologic Neuro Exam: Alert, Awake, Oriented Psychiatric Psych Exam: Appropriate Responses Assessment/Plan Problem List: (1) Acute renal failure Plan: in a pt with no recent labs for comparison she was admitted with abnormal creatinine in the setting or poor oral intake, nausea/vomiting, and diarrhea that improved with fluids, it is likely MICHEL is prerenal as she was dehydrated on arrival her renal function then worsened which coincided with a few doses of IV toradol and increased doses of Prograf no electrolyte concerns currently she is non oliguric at this time I have stopped the ordered Toradol, she is on IVF which can continue monitor renal function her tacrolimus level is acceptable but borderline high for renal toxicity hepatorenal syndrome must be considered in any patient with ARF in the setting of hepatic failure, but this is a diagnosis of exclusion so one must rule out all other causes first. Renal U/S noted. Has rare eosinophils in the urine, ?AIN. Creatinine almost same. (2) Liver transplant rejection Plan: she was given IV solumedrol on tacrolimus bid the plan is to transfer to [place] for continued care when a bed is available Amalia Swain MD May 09, 2016 11:55
[2016-05-09 12:18] VITALS: BP 139/75; PULSE 86; RESP 18; TEMP 98.3; O2SAT 99
--- NOTE | 2016-05-09 12:45 | HHI.PR ---
Subjective Remarks No new complaints. Objective Vitals Vital Signs Date Time Temp Pulse Resp B/P Pulse Ox O2 Delivery O2 Flow Rate FiO2 05/09/16 12:18 98.3 86 18 139/75 99 05/09/16 08:00 98.0 82 17 135/67 99 05/09/16 04:00 97.4 78 20 108/54 98 05/09/16 00:00 97.5 100 20 128/73 98 05/08/16 20:00 97.7 92 20 124/60 98 05/08/16 16:00 96.9 70 18 141/64 100 05/08/16 05/08/16 05/09/16 15:00 23:00 07:00 Intake Total 2883 ml 1030 ml 120 ml Balance 2883 ml 1030 ml 120 ml Intake Oral 480 ml 480 ml 120 ml IV Total 2403 ml 550 ml # Voids 3 1 1 # Bowel Movements 0 1 Result Diagram: 05/08/16 0759 Imaging Gallbladder ultrasound (58108) - Nodular liver consistent with cirrhosis - No evidence of portal vein thrombosis Last Impressions Renal Ultrasound 05/07/16 0000 Signed Impressions: Service Date/Time: Saturday, May 07, 2016 17:24 - CONCLUSION: 1. Small atrophic kidneys left greater than right this echogenicity consistent with medical renal disease. 2. There is no hydronephrosis. Yan Anand MD Gall Bladder Ultrasound 05/03/16 0000 Signed Impressions: Service Date/Time: Tuesday, May 03, 2016 15:54 - CONCLUSION: Nodular liver which could suggest some degree of cirrhosis in the correct clinical situation. Joe Guerrier MD ADDENDUM: I been asked to review the study. There is normal flow in the portal vein and hepatic veins. The hepatic artery was not examined. Joe Guerrier MD Chest X-Ray 05/03/16 0000 Signed Impressions: Service Date/Time: Tuesday, May 03, 2016 16:50 - CONCLUSION: No acute disease. John Drew MD Objective Remarks General: NAD, AAOx3, jaundiced ENT: Scleral icterus Chest: CTA Cardiac: Regular Abd: +BS, soft ND, epigastric discomfort Ext: No edema A/P Problem List: (1) Liver transplant rejection Status: Acute Plan: - Comgmt with GI, Dr. Chavez - Patient was off Prograf for 6 weeks, due to financial constraints - Patient recently hospitalized at [facility] in March 2016 - liver US (05/04/16) - NO evidence of portal vein thrombosis - On 381: Total bilirubin 17.7, alkaline phosphatase 439, AST 102, ALT 95 - TBili was 14.8 (05/05) --> 13.8 (05/06) --> 12.6 (05/07) - Pt received IV Solu-Medrol 200mg TID x 3 days - Prograf continued, but increased to 1.5 mg q12h, 6am/6pm on 05/07 - Atarax prn - Prograf level 11.7 (05/03/16) - Tacrolimus level tomorrow at 4am. - No coagulopathy - Tylenol level less than 2 - Protonix 40mg po daily added on 05/07 - GI has spoken with the liver administrative operations coordinator and to Dr. Youngblood at [facility], who agreed with 3 days of Solumedrol and increasing Prograf to 1.5mg po BID. He states that [facility] will accept the patient as in transfer once this has been approved by [facility]. - Per the conversation between the GI team and Dr. Youngblood it is suspected that patient will need another liver transplant, as her first transplant was over twenty years ago and she has not had any improvement with steroids. 05/08/16 - Pt interviewed and examined - BMP, LFTs in AM - d/w [facility] & CP 05/10, re: possible transfer to [facility] (2) Elevated blood pressure reading Status: Acute Plan: - Patient was discharged in [facility] on Norvasc and atenolol - Not clear if patient was taking this in the outpatient setting - BP is intermittently elevated - Catapres prn, Vasotec prn (3) Hemorrhoids, external Status: Acute Plan: - ProctoFoam (4) Steroid-induced hyperglycemia Status: Acute Plan: - HgA1C 5.1 (05/05/16) - Levemir increased to 20 units BID on 05/06, stopped this morning as steroids were stopped - SSI - Now that steroids have been stopped this should improve, monitor closely (5) Acute on chronic renal insufficiency Status: Acute Plan: - comgmt with Nephrology - Review of outpt records indicate that her previous labs in 2009 her Cr was 1.22 - IVF - repeat BMP in AM Ky Johns DO May 09, 2016 12:45
--- NOTE | 2016-05-09 15:06 | HHI.GIFU ---
Subjective Remarks No complaints of abd pain, nausea/vomiting currently. Tolerating her diet. (Deana Clemente) Objective Vitals I&O Vital Signs Date Time Temp Pulse Resp B/P Pulse Ox O2 Delivery O2 Flow Rate FiO2 05/09/16 12:18 98.3 86 18 139/75 99 05/09/16 08:00 98.0 82 17 135/67 99 05/09/16 04:00 97.4 78 20 108/54 98 05/09/16 00:00 97.5 100 20 128/73 98 05/08/16 20:00 97.7 92 20 124/60 98 05/08/16 16:00 96.9 70 18 141/64 100 I/O 05/08/16 05/08/16 05/08/16 05/09/16 05/09/16 05/09/16 07:00 15:00 23:00 07:00 15:00 23:00 Intake Total 240 ml 2883 ml 1030 ml 120 ml Balance 240 ml 2883 ml 1030 ml 120 ml Intake Oral 240 ml 480 ml 480 ml 120 ml IV Total 2403 ml 550 ml # Voids 4 3 1 1 # Bowel Movements 0 1 Laboratory Laboratory Tests Test 05/08/16 19:45 Urine Eosinophils RARE Urine Random Creatinine 59.2 Urine Random Sodium 92 Physical Exam HEENT: Normocephalic; atraumatic; + jaundice. CHEST: CTA CARDIAC: RRR ABDOMEN: Soft, nondistended, mild epigastric tenderness; bowel sounds are present in all four quadrants. EXTREMITIES: No clubbing, cyanosis, or edema. SKIN: Normal; no rash; + jaundice. BUSINESS AREA MANAGER: No focal deficits; alert and oriented times three. (Deana Clemente) Assessment and Plan Plan ASSESSMENT: - Elevated LFTs/Liver rejection in patient with liver transplant. 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 Pt has followed at [facility] since 1995. She was recently hospitalized for possible rejection in March after being off her Prograf x 6 weeks. She underwent liver biopsy at that time (04/02/16)----> mild acute cellular rejection with associated endotheliitis, no evidence of ductopenia, focal bridging fibrosis (stage 2-3). CMV was pending. Of note, her T. Bili at that time was 10.2. She was granted assistance for Prograf through [employer] and according to the notes, a 90 day supply was to be delivered on 03/26/16. The patient reports that she has since been taking these as prescribed- 2mg in am and 1mg at night. Her tacrolimus level was 11.7 on admission. Gall Bladder Ultrasound (05/03/16)-----> Nodular liver which could suggest some degree of cirrhosis in the correct clinical situation. ADDENDUM: I been asked to review the study. There is normal flow in the portal vein and hepatic veins. The hepatic artery was not examined. Liver medical coordinator pesticide use is Deana Rizo . Spoke to Dr. Youngblood at [facility], who states that [facility] will accept hospital to hospital transplant once this is approved by [facility]. He would like for her to have an MRI/MRCP, but prefer for this to be done at [facility]- to evaluate the bile ducts. He feels that she will likely need a liver transplant, as she has already had her liver for over 20 years. CM following. Awaiting approval from [facility] for liver transplant evaluation. S/ P 3 days of Solu-Medrol. Labs 05/08--> T. Bili 12.6, AST 141, ALT 1165, Alk Phosph 385. Prograf 1.5mg po BID per [facility]'s recommendations. Tacrolimus level (trough) 22.5 on 05/08 - Epigastric discomfort, improved. States that this started after she was started on the Solu-Medrol and always seems to have this with steroids. PPI. Controlled - MICHEL, worsening. Creat 1.69 on 05/08. IVF per primary. Plan - [facility]- Heart healthy - Protonix 40mg po daily - Prograf po 1.5 mg q12h, 6am/6pm - Repeat LFTs, PT/INR in AM - Supportive care - Per previous conversation between our GI team and liver medical coordinator pesticide use , Deana Rizo and with Dr. Youngblood at [facility], who agreed with 3 days of Solu-Medrol and increasing Prograf to 1.5mg po BID. Dr. Youngblood informed our GI team that [facility] will accept the patient as hospital to hospital tx once this has been approved by [facility]. He suspects that patient will need another liver transplant, as her first transplant was over twenty years ago and she has not had any improvement with steroids. - Patient was seen and examined by Dr. Coronel and myself, this note is written on his behalf. (Deana Clemente) Physician Comments Patient seen and examined Agree with above Continue with current supportive care Monitor labs In spite of steroids LFTs continue to be elevated we are awaiting [facility] clearance for transfer at this point though no acute or urgent issues (Shady Coronel MD) Deana Clemente May 09, 2016 15:06 Shady Coronel MD May 09, 2016 16:44
[2016-05-09 16:00] VITALS: BP 135/84; PULSE 89; RESP 19; TEMP 98.7; O2SAT 98
[2016-05-09] MEDS: PETROLEUM/SHARK LIVER OIL 60 GM TUBE RECTAL SCH ×3 (16:49→20:56)
[2016-05-09 20:01] VITALS: BP 136/74; PULSE 86; RESP 20; TEMP 98.3; O2SAT 97
[2016-05-09] MEDS: TEMAZEPAM 15 MG CAP PO PRN (23:03)
[2016-05-10] VITALS: BP 140/72; PULSE 87; RESP 20; TEMP 99.2; O2SAT 96
[2016-05-10 04:00] VITALS: BP 136/74; PULSE 86; RESP 20; TEMP 98.3; O2SAT 97
[2016-05-10] MEDS: TACROLIMUS 0.5 MG CAP PO SCH ×2 (06:30→18:08)
[2016-05-10] MEDS: PETROLEUM/SHARK LIVER OIL 60 GM TUBE RECTAL SCH ×3 (06:31→18:45)
[2016-05-10 07:20] LABS: PROTHROMBIN TIME - PATIENT 11.3 SEC (9.8-11.6)
[2016-05-10 08:00] VITALS: BP 140/76; PULSE 85; RESP 20; TEMP 97.9; O2SAT 97
[2016-05-10 08:07] LABS: BICARBONATE 21.8 MEQ/L (21.0-32.0); POTASSIUM 4.5 MEQ/L (3.5-5.1)
[2016-05-10 08:19] LABS: INDIRECT BILIRUBIN 2.2 MG/DL (0.0-0.8); TOTAL BILIRUBIN ADULT 12.6 MG/DL (0.2-1.0)
[2016-05-10] MEDS: PANTOPRAZOLE SOD 40 MG DELAYED RELEASE TAB PO SCH (08:31)
[2016-05-10] MEDS ORDERED: ALBUMIN HUMAN 25% 25 GM/100 ML BAGP IV SCH (11:00)
--- NOTE | 2016-05-10 11:15 | HHI.PR ---
Subjective Remarks pt denies n/v. ambulating. no confusion Objective Vitals icteric. jaundice heart reg lung cta abd s/nt ext no edema Vital Signs Date Time Temp Pulse Resp B/P Pulse Ox O2 Delivery O2 Flow Rate FiO2 05/10/16 08:00 97.9 85 20 140/76 97 05/10/16 04:00 98.3 86 20 136/74 97 05/10/16 00:00 99.2 87 20 140/72 96 05/09/16 20:01 98.3 86 20 136/74 97 05/09/16 16:00 98.7 89 19 135/84 98 05/09/16 12:18 98.3 86 18 139/75 99 05/09/16 05/09/16 05/10/16 15:00 23:00 07:00 Intake Total 1080 ml 120 ml Balance 1080 ml 120 ml Intake Oral 240 ml 120 ml IV Total 840 ml # Voids 3 1 # Bowel Movements 1 0 Result Diagram: 05/10/16 0642 Imaging Gallbladder ultrasound (51442) - Nodular liver consistent with cirrhosis - No evidence of portal vein thrombosis Last Impressions Renal Ultrasound 05/07/16 0000 Signed Impressions: Service Date/Time: Saturday, May 07, 2016 17:24 - CONCLUSION: 1. Small atrophic kidneys left greater than right this echogenicity consistent with medical renal disease. 2. There is no hydronephrosis. Yan Anand MD Gall Bladder Ultrasound 05/03/16 0000 Signed Impressions: Service Date/Time: Tuesday, May 03, 2016 15:54 - CONCLUSION: Nodular liver which could suggest some degree of cirrhosis in the correct clinical situation. Joe Guerrier MD ADDENDUM: I been asked to review the study. There is normal flow in the portal vein and hepatic veins. The hepatic artery was not examined. Joe Guerrier MD Chest X-Ray 05/03/16 0000 Signed Impressions: Service Date/Time: Tuesday, May 03, 2016 16:50 - CONCLUSION: No acute disease. John Drew MD A/P Problem List: (1) Liver transplant rejection Status: Acute Plan: - Comgmt with GI, Dr. Byrne - Patient was off Prograf for 6 weeks, due to financial constraints - Patient recently hospitalized at [facility] in March 2016 - liver US (05/04/16) - NO evidence of portal vein thrombosis - On 381: Total bilirubin 17.7, alkaline phosphatase 439, AST 102, ALT 95 - Pt received IV Solu-Medrol 200mg TID x 3 days - Prograf continued, but increased to 1.5 mg q12h, 6am/6pm on 05/07 -- GI has spoken with the liver application coordinator and to Dr. Youngblood at [facility], who agreed with 3 days of Solumedrol and increasing Prograf to 1.5mg po BID. He states that [facility] will accept the patient as in transfer once this has been approved by [facility]. - Per the conversation between the GI team and Dr. Youngblood it is suspected that patient will need another liver transplant, as her first transplant was over twenty years ago and she has not had any improvement with steroids. today pt feels well. [facility] and [facility] talking this morning. awaiting an outpt f/u appt to be given. Also GI needs to reorder tacrolimas level and we will decide on d/c dose. renal prefers lower level to 15. Pt is agreeable to d/c home later today and will f/u with [facility] per the appt they give us. (2) Elevated blood pressure reading Status: Acute Plan: - Patient was discharged in [facility] on Norvasc and atenolol - Not clear if patient was taking this in the outpatient setting - BP is intermittently elevated - Catapres prn, Vasotec prn (3) Hemorrhoids, external Status: Acute Plan: - ProctoFoam (4) Steroid-induced hyperglycemia Status: Acute Plan: - HgA1C 5.1 (05/05/16) - Levemir increased to 20 units BID on 05/06, stopped this morning as steroids were stopped - SSI - Now that steroids have been stopped this should improve, monitor closely (5) Acute on chronic renal insufficiency Status: Acute Plan: - comgmt with Nephrology - Review of outpt records indicate that her previous labs in 2009 her Cr was 1.22 discussed with renal. they prefer to lower her prograf dose and have levels around 15. will await Tx team reccs also. see above Dominic Bethea MD May 10, 2016 11:14
--- NOTE | 2016-05-10 11:41 | HHI.NPPN ---
Subjective General Problems: Anemia Renal Failure: Acute History of Present Illness 60 y/o female with hx of liver transplant in 1993. She ran out of her prograf for several weeks due to insurance issues. She was admitted with acute rejection , noted to have MICHEL. Interval History she is lying in bed. Looks better. Renal function is better. (Leonela Gibson) Objective Data Data 05/09/16 05/10/16 19:00 07:00 Intake Total 840 ml 360 ml Balance 840 ml 360 ml Intake Oral 360 ml IV Total 840 ml # Voids 4 # Bowel Movements 1 Vital Signs Date Time Temp Pulse Resp B/P Pulse Ox O2 Delivery O2 Flow Rate FiO2 05/10/16 08:00 97.9 85 20 140/76 97 05/10/16 04:00 98.3 86 20 136/74 97 05/10/16 00:00 99.2 87 20 140/72 96 05/09/16 20:01 98.3 86 20 136/74 97 05/09/16 16:00 98.7 89 19 135/84 98 05/09/16 12:18 98.3 86 18 139/75 99 (Leonela Gibson) -: 05/10/16 0642 Physical Exam General Appearance: Well Developed, No Acute Distress, Comfortable (Leonela Gibson) Eyes Eye Exam: Pupils Equal (Leonela Gibson) Throat Throat Exam: Oral Mucosa [place] & Moist (Leonela Gibson) Neck Neck Exam: Neck Supple (Leonela Gibson) Pulmonary Resp Exam: Breath Sounds Equal, No Distress, Decreased Bases (Leonela Gibson) Cardiology CV Exam: Regular, Normal Sinus Rhythm (Leonela Gibson) Gastrointestinal/Abdomen GI Exam: Soft, Non-Tender, Bowel Sounds Present, Distended (Leonela Gibson) Musculoskeletal MS Exam: Normal Tone, Good Strength (Leonela Gibson) Integumentary Skin Exam: Warm, Dry (Leonela Gibson) Extremeties Extremities Exam: No Edema, Pedal Pulses Palpable (Leonela Gibson) Neurologic Neuro Exam: Alert, Awake, Oriented (Leonela Gibson) Psychiatric Psych Exam: Appropriate Responses (Leonela Gibson) Assessment/Plan Discussed Condition With: Patient Assessment Summary: MICHEL/Acute Renal Failure Problem List: (1) Acute renal failure Plan: in a pt with no recent labs for comparison that improved with fluids, it is likely MICHEL is prerenal as she was dehydrated on arrival her renal function then worsened which coincided with a few doses of IV toradol and increased doses of Prograf renal function is better today tolerating PO, stop IVF tacrolimus level very high, see below she is non oliguric Has rare eosinophils in the urine, ?AIN. She was given steroids at admission she can be discharged to follow up at [facility] if cleared by all physicians (2) Liver transplant rejection Plan: she was given IV solumedrol on tacrolimus bid, we recommend holding the tacrolimus until the level is less than 15, then resume. D/W [place] the plan is to transfer to [place] for continued care when a bed is available (Leonela Gibson) Plan patient was seen and examined. Agree with above assessment and plan. (Joaquin Alcaraz MD) Leonela Gibson May 10, 2016 11:41 Joaquin Alcaraz MD May 11, 2016 11:42
[2016-05-10 12:42] VITALS: BP 143/76; PULSE 87; RESP 20; TEMP 97.7; O2SAT 98
--- NOTE | 2016-05-10 13:54 | HHI.GIFU ---
Subjective Remarks Resting in bed in no distress. No complaints. No n/v. No abdominal pain. Spoke to Dr. Bethea, patient has not been approved for hospital to hospital transfer if patient is stable and this could be done as outpatient. Also discussed with Dr. Bethea renal services concern that the patient's tacrolimus level is slightly high and their concern that this could be affecting her kidney function. (Alexandra Velasquez) Objective Vitals I&O Vital Signs Date Time Temp Pulse Resp B/P Pulse Ox O2 Delivery O2 Flow Rate FiO2 05/10/16 12:42 97.7 87 20 143/76 98 05/10/16 08:00 97.9 85 20 140/76 97 05/10/16 04:00 98.3 86 20 136/74 97 05/10/16 00:00 99.2 87 20 140/72 96 05/09/16 20:01 98.3 86 20 136/74 97 05/09/16 16:00 98.7 89 19 135/84 98 I/O 05/09/16 05/09/16 05/09/16 05/10/16 05/10/16 05/10/16 07:00 15:00 23:00 07:00 15:00 23:00 Intake Total 120 ml 1080 ml 120 ml 120 ml Balance 120 ml 1080 ml 120 ml 120 ml Intake Oral 120 ml 240 ml 120 ml 120 ml IV Total 840 ml # Voids 1 3 1 # Bowel Movements 1 1 0 Laboratory Laboratory Tests Test 05/10/16 06:42 Prothrombin Time 11.3 Prothromb Time International 1.0 Ratio Sodium Level 146 Potassium Level 4.5 Chloride Level 115 Carbon Dioxide Level 21.8 Anion Gap 9 Blood Urea Nitrogen 23 Creatinine 1.30 Estimat Glomerular Filtration 42 Rate Random Glucose 146 Calcium Level 8.0 Total Bilirubin 12.6 Direct Bilirubin 10.4 Indirect Bilirubin 2.2 Aspartate Amino Transf 130 (AST/SGOT) Alanine Aminotransferase 180 (ALT/SGPT) Alkaline Phosphatase 469 Total Protein 4.8 Albumin 1.9 Imaging Last Impressions Renal Ultrasound 05/07/16 0000 Signed Impressions: Service Date/Time: Saturday, May 07, 2016 17:24 - CONCLUSION: 1. Small atrophic kidneys left greater than right this echogenicity consistent with medical renal disease. 2. There is no hydronephrosis. Yan Anand MD Gall Bladder Ultrasound 05/03/16 0000 Signed Impressions: Service Date/Time: Tuesday, May 03, 2016 15:54 - CONCLUSION: Nodular liver which could suggest some degree of cirrhosis in the correct clinical situation. Joe Guerrier MD ADDENDUM: I been asked to review the study. There is normal flow in the portal vein and hepatic veins. The hepatic artery was not examined. Joe Guerrier MD Chest X-Ray 05/03/16 0000 Signed Impressions: Service Date/Time: Tuesday, May 03, 2016 16:50 - CONCLUSION: No acute disease. John Drew MD Physical Exam HEENT: Normocephalic; atraumatic; + jaundice. CHEST: CTA CARDIAC: RRR ABDOMEN: Soft, nondistended, mild epigastric tenderness; bowel sounds are present in all four quadrants. EXTREMITIES: No clubbing, cyanosis, or edema. SKIN: Normal; no rash; + jaundice. [employer]: No focal deficits; alert and oriented times three. 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 Pt has followed at [facility] since 1995. She was recently hospitalized for possible rejection in March after being off her Prograf x 6 weeks. She underwent liver biopsy at that time (04/02/16)----> mild acute cellular rejection with associated endotheliitis, no evidence of ductopenia, focal bridging fibrosis (stage 2-3). CMV was pending. Of note, her T. Bili at that time was 10.2. She was granted assistance for Prograf through [employer] and according to the notes, a 90 day supply was to be delivered on 03/26/16. The patient reports that she has since been taking these as prescribed- 2mg in am and 1mg at night. Her tacrolimus level was 11.7 on admission. Gall Bladder Ultrasound (05/03/16)-----> Nodular liver which could suggest some degree of cirrhosis in the correct clinical situation. ADDENDUM: I been asked to review the study. There is normal flow in the portal vein and hepatic veins. The hepatic artery was not examined. Liver scheduling coordinator is Deana Rizo . Spoke to Dr. Youngblood at [facility], who states that [facility] will accept hospital to hospital transplant once this is approved by [facility]. He would like for her to have an MRI/MRCP, but prefer for this to be done at [facility]- to evaluate the bile ducts. He feels that she will likely need a liver transplant, as she has already had her liver for over 20 years. CM following. Awaiting approval from [facility] for liver transplant evaluation. S/ P 3 days of Solu-Medrol. Labs 05/08--> T. Bili 12.6, AST 130, ALT 180, Alk Phosph 469. Prograf 1.5mg po BID per [facility]'s recommendations. Tacrolimus level (trough) 22.5 on 05/08 although this was drawn at 0759 and patient's prograf was given at 0521. Renal is concern that if her Tacrolimus level is high, this could be contributing to her renal impairment. However, this was only mildly elevated on 05/08 and was actually drawn as a peak, despite being ordered as a trough. Will recheck this today at 4pm. D/W both patient and nurse Art, not to give the 6pm dose of Prograf until her Tacrolimus level is drawn. Call placed to [facility] to touch base see if they have any further recommendations- awaiting call back. - Epigastric discomfort, improved. States that this started after she was started on the Solu-Medrol and always seems to have this with steroids. PPI. Controlled - MICHEL,per renal Plan - CELSO- Heart healthy - Protonix 40mg po daily - Prograf po 1.5 mg q12h, 6am/6pm - Tacrolimus today at 1600. D/W both patient and nurse that this is to be drawn prior to 6pm dose of Prograf - Hospital to hospital transfer was not approved by [facility] and so the plan is to have her FU this week/early next week as outpatient. Call placed to [facility] at . Message left for them to return call to notify them of updates, renal concerns re: prograf and MICHEL, see about a FU appointment later this week, any further recommendations. Awaiting call back. - Per previous conversation between our GI team and liver scheduling coordinator last week, Deana Rizo and with Dr. Youngblood at [facility], who agreed with 3 days of Solu-Medrol and increasing Prograf to 1.5mg po BID. Dr. Youngblood informed our GI team that [facility] will accept the patient as hospital to hospital tx once this has been approved by [facility]. He suspects that patient will need another liver transplant, as her first transplant was over twenty years ago and she has not had any improvement with steroids. - Patient was seen and examined by Dr. Craig and myself, this note is written on her behalf. ADDENDUM: Spoke to Deana at [facility]. Reports that Dr. Youngblood spoke to Dr. Centeno and that they have agreed that patient can FU next week at [facility] as outpatient. As far as prograf, they recommend not adjusting prograf at this time, and checking tacrolimus trough. This has been ordered for 4pm and instructed patient and nurse not to give Prograf until this has been drawn. They will be contacting patient to set up MRCP/FU appointment. Per Deana Rizo, they have been keeping her trough 6-8. She is going to clarify with Dr. Youngblood parameters for keeping on current dose, holding prograf and if we hold it would he want her to have outpt vs. inpatient repeat labs. She will call me back after speaking to Dr. Youngblood. Per Dr. Youngblood at [facility]. Does not feel that patient really needs to stay inpatient from liver standpoint. Recommends checking trough prior to d/c. His goal is 7- 10. If her trough comes back lower than this, he recommends increasing prograf to 2mg po BID. If her level is higher than this, he recommends holding and repeating tacrolimus in 48 hours with the labs cc'd to them (states patient has standing orders for this). FU at [facility]- they will call with follow up appointment. (Alexandra Velasquez) Physician Comments seen, examined agree with above (Makayla Craig MD) Alexandra Velasquez May 10, 2016 13:54 Makayla Craig MD May 10, 2016 19:50
[2016-05-10 16:04] VITALS: BP 148/79; PULSE 87; RESP 20; TEMP 98.8; O2SAT 100
[2016-05-10] MEDS ORDERED: TACR0.5 PO (17:30)
--- NOTE | 2016-05-10 17:30 | HHI.DCPOC ---
Discharge Care Plan Diagnosis: (1) Liver transplant rejection Goals to Promote Your Health * To prevent worsening of your condition and complications * To maintain your health at the optimal level Directions to Meet Your Goals Take your medications as prescribed Follow your dietary instruction Follow activity as directed Keep your appointments as scheduled Take your immunizations and boosters as scheduled If your symptoms worsen call your PCP, if no PCP go to Urgent Care Center or Emergency Room Smoking is Dangerous to Your Health. Avoid second hand smoke Call the 24-hour hour crisis hotline for domestic abuse at Dominic Bethea MD May 10, 2016 17:30
[2016-05-10 20:00] VITALS: BP 150/85; PULSE 88; RESP 18; TEMP 99.5; O2SAT 98
[2016-05-10] MEDS: SODIUM CHLORIDE 0.9% FLUSH 5 ML FLUSH FLUSH SCH (21:00)
--- NOTE | 2016-06-14 21:34 | HHI.DS ---
Discharge Summary Admission Date May 03, 2016 at 17:39 Discharge Date: May 10, 2016 Admitting Diagnosis LIVER TRANSPLANT REJECTION (1) Liver transplant rejection Diagnosis: Principal (2) Elevated blood pressure reading Diagnosis: Principal (3) Hemorrhoids, external Diagnosis: Secondary (4) Steroid-induced hyperglycemia Diagnosis: Secondary (5) Acute on chronic renal insufficiency Diagnosis: Secondary Brief History Patient is a pleasant 60-year-old female who underwent orthotopic liver transplantation at [facility] in [facility] on 06/07/1993 for end- stage liver disease due to cryptogenic cirrhosis. She received a full-sized graft with a [id number] biliary anastomosis. CMV status is unknown. Patient presented to [place] ER with complaint of diarrhea, jaundice, dark urine , pruritus, weakness, but no abdominal pain except with cough. No edema. No fever. Patient denies any weight gain or personality changes. Patient was sent to the ER by her primary care physician due to abnormal labs. Patient has previously followed at the Liver Clinic at the [facility]. Per review of records from [facility] patient has previously had issues with compliance including labs, medications, and financial constraints. Patient was admitted to inpatient status at the [facility] on April 01, 2016. At that time patient had been off of her anti-rejection medication for 6 weeks, prograf. Patient resumed Prograf 1 week prior to above March hospitalization. Upon presentation to the [facility], patient complained of a 3 week history of fatigue, nausea, vomiting, abdominal distention, pruritus, dark urine. At that time admission labs showed elevated LFTs and hyperbilirubinemia with a total bilirubin of 9.2 (04/01/16), bili direct 7.2 (04/01/16), alk phos 537 (04/01/16), ALT 227 (04/01/16), AST 184 (04/01/16), Creatinine 1.5 (04/01/16). During hospitalization at [facility] pt was attended by Dr. Ford Torres. Pt underwent liver biopsy during above hospitalization which per records showed mild acute cellular rejection. Pt received atarax, IV Solu-Medrol 1 g x 3 doses, and was discharge on prograft. Pt seen in [facility] ER 04/09/16 with c/o N/V and pruritus. Bilirubin total 13.2, bilirubin direct 9.8, alkaline phosphatase 512, ALT 259, AST 134, creatinine 1.0. ER records indicate that patient was NOT admitted. There was communication between the ER physician and the liver transplant team. Patient was continued on Atarax. Patient was instructed to follow-up with the [facility] liver transplantation team. Outpatient Labs obtained 04/28/16 Bilirubin total 17.7, alkaline phosphatase 439, AST 102, ALT 95, creatinine 1.47 Item Value Date Time Total Bilirubin 15.7 MG/DL H 05/03/16 1515 Aspartate Amino Transf (AST/SGOT) 102 U/L H 05/03/16 1515 Alanine Aminotransferase (ALT/SGPT) 90 U/L H 05/03/16 1515 Alkaline Phosphatase 456 U/L H 05/03/16 1515 Ammonia LESS THAN 10 MCMOL/L L 05/03/16 1515 Creatinine 1.62 MG/DL H 05/03/16 1515 Patient denies use supplements or recent use of Tylenol. Pt denies starting any new medications. Hospital Course -Pt with hx Liver Transplant over 20 yrs ago. - Patient was off Prograf for 6 weeks, due to financial constraints - Patient recently hospitalized at [facility] in March 2016 - liver US (05/04/16) - NO evidence of portal vein thrombosis - On 3817: Total bilirubin 17.7, alkaline phosphatase 439, AST 102, ALT 95 - Pt received IV Solu-Medrol 200mg TID x 3 days - Prograf continued, but increased to 1.5 mg q12h, 6am/6pm on 05/07 -- GI has spoken with the liver merchandise coordinator and to Dr. Youngblood at [facility], who agreed with 3 days of Solumedrol and increasing Prograf to 1.5mg po BID. --Per the conversation between the GI team and Dr. Youngblood it is suspected that patient will need another liver transplant, as her first transplant was over twenty years ago and she has not had any improvement with steroids. --Today pt feels well. [facility] and CP talking this morning. awaiting an outpt f/ u appt to be given. Also GI needs to reorder tacrolimas level and we will decide on d/c dose. renal prefers lower level to 15. Pt is agreeable to d/c home later today and will f/u with [facility] per the appt they give us. --Given insulin during the admission for streroid hyperglycemia --MICHEL noted - comgmt with Nephrology - Review of outpt records indicate that her previous labs in 2009 her Cr was 1.22 --Discussed with renal. they prefer to lower her prograf dose and have levels around 15. Pt Condition on Discharge: Stable Discharge Disposition: Discharge Home Discharge Instructions DIET: Follow Instructions for: As Tolerated, No Restrictions Activities you can perform: Regular-No Restrictions Follow up Referrals: Appointment for Follow Up - 1 Week @ [facility] Hepatology with Dr Youngblood Gastroenterology - 1 Week @ [facility] with Cassidy Byrne MD PCP Follow-up - 1 Week with misty roland New Medications: Tacrolimus (Prograf) 0.5 Mg Cap 1.5 MG PO DAILY@ liver transplant #60 CAP Discontinued Medications: Tacrolimus (Prograf) 1 Mg Cap 1 MG PO TID Prevent Transplant Reject #60 Ref 0 CAP Dominic Bethea MD Jun 14, 2016 21:34
== END 2016-05-10 22:04 | disposition home or self-care (01) | DRG 682 ==
LOC: NEPE 13:17 → NEDA 17:39 → OBSVTOIN 17:39 → N05B 22:37
PROVIDERS: ADMIT Hospitalist; ATTEND Hospitalist
DX: N17.9 Acute kidney failure, unspecified (principal); T86.41 Liver transplant rejection; K83.1 Obstruction of bile duct; K74.69 Other cirrhosis of liver; Z94.0 Kidney transplant status; E86.0 Dehydration; K72.90 Hepatic failure, unspecified without coma; Y83.0 Surgical operation with transplant of whole organ as the cause of abnormal reaction of the patient, or of later complication, without mention of misadventure at the time of the procedure; T38.0X5A Adverse effect of glucocorticoids and synthetic analogues, initial encounter; R73.9 Hyperglycemia, unspecified; N18.9 Chronic kidney disease, unspecified; D63.1 Anemia in chronic kidney disease; I12.9 Hypertensive chronic kidney disease with stage 1 through stage 4 chronic kidney disease, or unspecified chronic kidney disease; L29.9 Pruritus, unspecified; K64.4 Residual hemorrhoidal skin tags; F41.9 Anxiety disorder, unspecified; Z91.19 Patient's noncompliance with other medical treatment and regimen; G43.909 Migraine, unspecified, not intractable, without status migrainosus; M54.5 Low back pain
CPT/HCPCS: 71010; 76705; 76775; 80048; 80053; 80076; 80197; 80307; 81001; 82140; 82570; 82948; 83036; 83605; 83690; 83735; 84100; 84300; 85007; 85027; 85610; 85730; 87205; 93005; J1815; J1885; J2405; J2920; J2930; J3475; J7030; J7507; P9047